=== PATIENT | female | born 1985 | race Caucasian/White ===

== ENCOUNTER 2022-04-21 11:42 | Emergency (ER) | payer OTHER, SELFPAY ==
--- NOTE | 2022-04-21 11:43 | ED.EAR ---
HPI - Ear Problem General Chief complaint: Ear Stated complaint: Right Ear Pain/Dizziness Time Seen by Provider: 04/21/22 11:43 Source: patient Mode of arrival: ambulatory Limitations: no limitations History of Present Illness HPI Narrative: Ms. Meyers is a 36-year-old female patient presenting to the clinic today with complaints of right ear pain and some dizziness since yesterday. She reports she has fullness in her ear. Recently has been to [place] and did very little swimming. Related Data Home Medications Medication Instructions Recorded Confirmed No Home Medications 04/21/22 04/21/22 Allergies Allergy/AdvReac Type Severity Reaction Status Date / Time No Known Allergies Allergy Verified 04/21/22 11:56 Review of Systems Review of Systems: Pertinent positives per HPI. Patient denies any fever, chills, rash, headache, visual changes, cough, runny nose, sore throat, shortness of breath, chest pain, palpitations, nausea, vomiting, diarrhea, constipation, abdominal pain, or any urinary issues. PMFSH Comments At the time of my signature, I reviewed and agree with the nursing past medical, surgical, social, and family history. There is no relevant family history pertinent to the patient complaint. Exam Narrative: General: Well-developed, well nourished, in no apparent distress Head: Normocephalic, atraumatic Eyes: Pupils equally round and reactive to light bilaterally, EOM intact, sclera and conjunctive clear, no discharge, lids normal Ears: Bilateral ear canals with excessive cerumen with impaction to the right ear canal, ear lavage was performed bilaterally and successful, TMs intact and clear, ear canals clear, no drainage, grossly hearing normal. Symptoms improved after ear lavage Nose: Nares patent, no discharge, no inflammation, no sinus tenderness. Mouth: Oropharynx without lesions or masses, good dentition, MMM. Neck: Supple, trachea midline, no enlargement of anterior or posterior cervical nodes, no thyroid masses or goiter palpable. Cardio: Regular rate and rhythm, s1 and s2 normal, no murmur appreciated. Resp: Clear to auscultation bilaterally anteriorly and posteriorly, no rhonchi, rales, wheezing or rubs Course Course Emergency Course: Portions of this record may have been created with voice recognition software. Level of Care: Express Care Visit Vital Signs Vital signs: Vital Signs Temperature 37.2 C 04/21/22 11:50 Pulse Rate 76 07/28/22 11:50 Respiratory Rate 16 04/21/22 11:50 Blood Pressure 109/62 04/21/22 11:50 Pulse Oximetry 100 04/21/22 11:50 Oxygen Delivery Room Air 04/21/22 11:50 Temperature 37.2 C 04/21/22 11:50 Pulse Rate 76 04/21/22 11:50 Respiratory Rate 16 04/21/22 11:50 Blood Pressure 109/62 04/21/22 11:50 Pulse Oximetry 100 04/21/22 11:50 Oxygen Delivery Room Air 04/21/22 11:50 Vital signs reviewed Procedures Ear Wax Removal Both Ears: Ear Wax Removal Date: 04/21/22 Results: Re-examined: cerumen removed completely TM Examination: TM(s) intact, normal appearance Ear Canal Exam: atraumatic Patient Tolerated Procedure: well Complications: no problems Technique: ear canal irrigated Additional Comments: Consent for ear irrigation obtained. Risk and benefits were explained and patient voiced understanding. Ear irrigation successfully and this improved patient's symptoms of right ear fullness and dizziness. Medical Decision Making MDM Narrative Medical decision making narrative: At the time of visit patient is resting comfortably on the exam table. Bilateral ear canals with excessive cerumen with impaction in the right ear. Ear irrigation performed bilaterally and this improved patient's symptoms. Supportive measures were discussed with the patient she voiced understanding of discharge instructions and agrees to treatment plan. Vital Signs Vital Signs: Vital Signs Temp
[2022-04-21 11:50] VITALS: BP 109/62; PULSE 76; RESP 16; TEMP 37.2; O2SAT 100
--- NOTE | 2022-04-21 13:28 | PC.NURSE ---
R ear irrigated by provider
== END 2022-04-21 12:38 | disposition home or self-care (01) ==
PROVIDERS: Emergency Provider Nurse Practitioner Family; PCP Physician Assistant
DX: H61.23 Impacted cerumen, bilateral (principal)
CPT/HCPCS: 69209; 99212; G0463

== ENCOUNTER 2023-04-09 08:50 | Emergency (ER) | payer OTHER, SELFPAY ==
[2023-04-09 09:02] VITALS: BP 106/60; PULSE 66; RESP 20; TEMP 36.4; O2SAT 100
--- NOTE | 2023-04-09 09:15 | ED.EAR ---
HPI - Ear Problem General Chief complaint: Ear Stated complaint: throbbing pain rt ear Time Seen by Provider: 04/09/23 09:02 Source: patient Mode of arrival: ambulatory Limitations: no limitations History of Present Illness HPI Narrative: Tere is a 37-year-old female patient presenting to clinic today with complaints of right-sided ear pain that just began 2 days ago. She reports she has recently been swimming. No fevers or chills. Related Data Allergies Allergy/AdvReac Type Severity Reaction Status Date / Time No Known Allergies Allergy Verified 04/09/23 09:11 Review of Systems Review of Systems: Pertinent positives per HPI. Patient denies any fever, chills, rash, headache, visual changes, dizziness, cough, runny nose, sore throat, shortness of breath, chest pain, palpitations, nausea, vomiting, diarrhea, constipation, abdominal pain, or any urinary issues. PMFSH Comments At the time of my signature, I reviewed and agree with the nursing past medical, surgical, social, and family history. There is no relevant family history pertinent to the patient complaint. Exam Narrative: General: Well-developed, well nourished, in no apparent distress Head: Normocephalic, atraumatic Eyes: Pupils equally round and reactive to light bilaterally, EOM intact, sclera and conjunctive clear, no discharge, lids normal Ears: TMs intact and clear, ear canals clear, no drainage, grossly hearing normal. Nose: Nares patent, no discharge, no inflammation, no sinus tenderness. Mouth: Oropharynx without lesions or masses, good dentition, MMM. Neck: Supple, trachea midline, no enlargement of anterior or posterior cervical nodes, no thyroid masses or goiter palpable. Cardio: Regular rate and rhythm, s1 and s2 normal, no murmur appreciated. Resp: Clear to auscultation bilaterally anteriorly and posteriorly, no rhonchi, rales, wheezing or rubs Course Course Emergency Course: Portions of this record may have been created with voice recognition software. Level of Care: Express Care Visit Vital Signs Vital signs: Vital Signs Temperature 36.4 C 04/09/23 09:02 Pulse Rate 66 04/09/23 09:02 Respiratory Rate 20 04/09/23 09:02 Blood Pressure 106/60 04/09/23 09:02 Pulse Oximetry 100 04/09/23 09:02 Oxygen Delivery Room Air 04/09/23 09:02 Temperature 36.4 C 04/09/23 09:02 Pulse Rate 66 04/09/23 09:02 Respiratory Rate 20 04/09/23 09:02 Blood Pressure 106/60 04/09/23 09:02 Pulse Oximetry 100 04/09/23 09:02 Oxygen Delivery Room Air 04/09/23 09:02 Vital signs reviewed Medical Decision Making MDM Narrative Medical decision making narrative: At the time of visit patient is resting comfortably on exam table. I suspect patient has right otitis externa. Prescription for Cipro Floxin ear drops was sent to the pharmacy. Supportive measures were discussed with the patient she voiced understanding discharge instructions agrees to treatment plan. Differential Diagnosis Differential Diagnosis: Otitis media, otitis media, eustachian tube dysfunction, upper respiratory infection, cerumen impaction. Vital Signs Vital Signs: Vital Signs Temperature 36.4 C 04/09/23 09:02 Pulse Rate 66 04/09/23 09:02 Respiratory Rate 20 04/09/23 09:02 Blood Pressure 106/60 04/09/23 09:02 Pulse Oximetry 100 04/09/23 09:02 Oxygen Delivery Room Air 04/09/23 09:02 Temperature 36.4 C 04/09/23 09:02 Pulse Rate 66 04/09/23 09:02 Respiratory Rate 20 04/09/23 09:02 Blood Pressure 106/60 04/09/23 09:02 Pulse Oximetry 100 04/09/23 09:02 Oxygen Delivery Room Air 04/09/23 09:02 Discharge Plan Discharge Clinical Impression: Otitis externa Qualifiers: Otitis externa type: diffuse Chronicity: acute Laterality: right Qualified Code(s): H60.311 - Diffuse otitis externa, right ear Patient Disposition: Home, Self-Care Condition: Stable Instructions: Antibiotic Form, Swi
== END 2023-04-09 09:22 | disposition home or self-care (01) ==
PROVIDERS: Emergency Provider Nurse Practitioner Family; PCP Physician Assistant
DX: H60.311 Diffuse otitis externa, right ear (principal)
CPT/HCPCS: 99213; G0463

== ENCOUNTER 2024-09-12 11:49 | Emergency (ER) | payer OTHER, SELFPAY ==
[2024-09-12 11:58] VITALS: BP 99/63; PULSE 90; RESP 17; TEMP 37; O2SAT 100
--- NOTE | 2024-09-12 12:10 | ED_ITS ---
HPI - Ear Problem General Chief complaint: Ear Stated complaint: left ear Time Seen by Provider: 09/12/24 12:12 Source: patient Mode of arrival: ambulatory Limitations: no limitations History of Present Illness HPI Narrative: 38-year-old female presented for complaint of left ear fullness over the past few days. She states it feels like it is impacted. reports history of cerumen impactions. Denies tinnitus, dizziness nasal congestion or sick symptoms. 36 weeks gestation MD Complaint: ear pain Related Data Home Medications ?Medication ?Instructions ?Recorded ?Confirmed ?Last Taken ?Type amoxicillin 875 mg tablet mg 09/12/24 Unknown History ferrous sulfate 325 mg (65 mg mg 09/12/24 Unknown History iron) tablet vitamin with calcium tablet 09/12/24 Unknown History no.72-iron 27 mg-folic acid 1 mg tablet (M-Anne Plus) Allergies Allergy/AdvReac Type Severity Reaction Status Date / Time No Known Allergies Allergy Verified 09/12/24 12:02 Review of Systems Review of Systems: CONSTITUTIONAL: Denies malaise, chills, or fever. EYES: Denies visual changes, redness, or discharge. ENT: Denies rhinorrhea, congestion, sinus pain, and sore throat. Reports ear fullness CARDIOVASCULAR: Denies chest pain, palpitations, or edema. RESPIRATORY: Denies cough or dyspnea. GASTROINTESTINAL: Denies abdominal pain, nausea, vomiting, diarrhea SKIN: Denies rash or itching. MUSCULOSKELETAL: Denies myalgia. NEUROLOGIC: Denies headache. All systems reviewed & are unremarkable except as noted in HPI and below [facility] Comments At time of signature, agree with nursing past medical, surgical, social and family history. There is no relevant family history pertinent to the presenting complaint Exam Narrative: GENERAL: Well-appearing EYES: PERRLA, conjunctivae clear ENT: Nares clear. Mucous membranes moist. bilateral TMs unable to visualize due to cerumen impactions, no tragal tenderness. Oropharynx not erythematous without lesions. Tonsils not enlarged and without exudate, no drooling, no hoarseness, no trismus, uvula midline. NECK: Bilateral swelling distal to mandible CHEST: Clear to auscultation, breath sounds equal. No wheezing, rhonchi, rales, or stridor. No respiratory distress, speaks in full sentences. HEART: Regular rate and rhythm. SKIN: Warm, dry, no rash. NEURO: Alert and oriented x3. PSYCH: Normal mood and affect Course Course Emergency Course: Patient is aware of diagnosis, understands and agrees to treatment plan. Anticipatory guidance given. Patient agrees to follow-up as directed and is aware of reasons to seek care at the emergency department. Portions of this record may have been created with voice recognition software Level of Care: Express Care Visit Vital Signs Vital signs: Vital Signs Temperature 98.6 F 09/12/24 11:58 Pulse Rate 90 09/12/24 11:58 Respiratory Rate 17 09/12/24 11:58 Blood Pressure 99/63 L 09/12/24 11:58 Pulse Oximetry 100 09/12/24 11:58 Oxygen Delivery Room Air 09/12/24 11:58 Temperature 98.6 F 09/12/24 11:58 Pulse Rate 90 09/12/24 11:58 Respiratory Rate 17 09/12/24 11:58 Blood Pressure 99/63 L 09/12/24 11:58 Pulse Oximetry 100 09/12/24 11:58 Oxygen Delivery Room Air 09/12/24 11:58 Reviewed Procedures Ear Wax Removal Left Ear: Ear Wax Removal Date: 09/12/24 Cerumenolytic Used: other ( Equal parts warm water and hydrogen peroxide) Results: Re-examined: some cerumen remains TM Examination: other ( unable to fully visualize TM) Ear Canal Exam: atraumatic Complications: vertigo/dizziness ( mild) Technique: ear canal irrigated and ear canal curetted Additional Comments: Pt unable to tolerate curette due to discomfort. Irrigation resulted in mild dizziness.Minimal cerumen was removed, procedure terminated due to dizziness. Cerumen is minimal but near TM. Medical Decision Making MDM Narrative Medical decision making narrative: patient unable to tolerate full cerumen removal due to dizziness. Advised supportive measures and signs/symptoms to go to the ER. Patient is appropriate for outpatient treatment and follow-up. Differential Diagnosis Differential Diagnosis: Coronavirus, strep pharyngitis, allergic rhinitis, upper respiratory tract infection, sinusitis, rhinosinusitis, nasopharyngitis, viral pharyngitis, otitis media, otitis externa, eustachian tube dysfunction, foreign body, cerumen impaction. Vital Signs Vital Signs: Vital Signs Temperature 98.6 F 09/12/24 11:58 Pulse Rate 90 09/12/24 11:58 Respiratory Rate 17 09/12/24 11:58 Blood Pressure 99/63 L 09/12/24 11:58 Pulse Oximetry 100 09/12/24 11:58 Oxygen Delivery Room Air 09/12/24 11:58 Temperature 98.6 F 09/12/24 11:58 Pulse Rate 90 09/12/24 11:58 Respiratory Rate 17 09/12/24 11:58 Blood Pressure 99/63 L 09/12/24 11:58 Pulse Oximetry 100 09/12/24 11:58 Oxygen Delivery Room Air 09/12/24 11:58 Discharge Plan Discharge Clinical Impression: Bilateral impacted cerumen Patient Disposition: Home, Self-Care Condition: Stable Instructions: Antibiotic Form, How to Use Ear Drops (ED) Additional Instructions: Please use a earwax softening agent such as [id number] Debrox or a mixture of 1 part hydrogen peroxide in 1 part warm water several times weekly to keep your earwax soft and prevent further impaction. Please follow-up with your primary care doctor if you develop new symptoms. If you have urgent concerns please go to the ER. Patient Language: Algerian Prescriptions: No Action amoxicillin 875 mg tablet ferrous sulfate 325 mg (65 mg iron) tablet M-Anne Plus 27 mg iron- 1 mg tablet Follow-up/Referrals: Christophe,Bev Adkins [Primary Care Provider] - Time of Disposition: 12:36
== END 2024-09-12 12:40 | disposition home or self-care (01) ==
PROVIDERS: Emergency Provider Nurse Practitioner Family; PCP Nurse Practitioner
DX: H61.23 Impacted cerumen, bilateral (principal)
CPT/HCPCS: 69210; 99212; G0463

== ENCOUNTER 2024-11-11 14:24 | Emergency (ER) | payer OTHER, SELFPAY ==
[2024-11-11 14:32] VITALS: BP 118/73; PULSE 116; RESP 14; TEMP 37.1; O2SAT 100
--- NOTE | 2024-11-11 15:06 | ED.EYEPROB ---
HPI - Eye Problem General Chief complaint: Eye Problems Stated complaint: Left Eye Swelling Time Seen by Provider: 11/11/24 15:00 Source: patient, RN notes reviewed and old records reviewed Mode of arrival: ambulatory Limitations: no limitations History of Present Illness HPI Narrative: 39 year old female who presents to [facility] care with complaint of left lower eyelid swelling and redness with raised whitish yellow lesion noted on lower external eyelid for the past 4 days. Patient has been applying warm compresses to her left lower eyelid without improvement in her symptoms. Patient reports no visual changes or sharp pain to her left eye.Conjunctiva of left eye is reddened with sclera clear. MD chief complaint: eye redness and other (swelling left lower eyelid, stye) Onset (ago): day(s) (4) Location: left eye Severity scale (1-10): 3 Treatments Prior to Arrival: other (warm compresses to left eye) Related Data Home Medications ?Medication ?Instructions ?Recorded ?Confirmed ?Last Taken ?Type ferrous sulfate 325 mg (65 mg mg 09/12/24 Unknown History iron) tablet vitamin with calcium tablet 09/12/24 Unknown History no.72-iron 27 mg-folic acid 1 mg tablet (M-Anne Plus) Allergies Allergy/AdvReac Type Severity Reaction Status Date / Time No Known Allergies Allergy Verified 11/11/24 14:36 Review of Systems Review of Systems: CONSTITUTIONAL: Denies fever, chills, or sweats. EYES: Denies visual changes. Reports redness, irritation, of left lower eyelid with swelling and yellowish white lesion noted on left lower eyelid, no sharp pain to left eye ENT: Denies rhinorrhea, congestion, sore throat, or otalgia. CARDIOVASCULAR: Denies chest pain, palpitations, or edema. RESPIRATORY: Denies cough or dyspnea. SKIN: Denies rash or itching. NEUROLOGIC: Denies headache All systems reviewed & are unremarkable except as noted in HPI and below PMFSH Past Medical History Medical History (Updated 11/12/24 @ 08:12 by Ledy Ortega NP) Anemia Surgical History Surgical History Previous section Social History Social History (Updated 11/12/24 @ 08:09 by Ledy Ortega NP) Smoking status: Never smoker Alcohol intake: current Alcohol use details: social Substance use type: does not use Living arrangements: with family Gender identity (if verbalized by the patient): Female Comments At time of signature, agree with nursing past medical, surgical, social and family history. There is no relevant family history pertinent to the presenting complaint Exam Narrative: GENERAL: Well-appearing, well-nourished, and in no acute distress. HEAD: Normocephalic, atraumatic. EYES: PERRLA and EOMI. Upper and lower eyelids unremarkable right eye, Left eye upper eyelid unremarkable left lower eyelid red and swollen with raised whitish yellow lesion. No periorbital cellulitis noted. Sclera clear and conjunctivae injected of left eye, patient reports no change in vision or any drainage from left eye denies any sharp pain to left eye. ENT: Nares clear, no rhinorrhea or epistaxis. Mucous membranes moist.TM's normal bilaterally, throat pink with no swelling or redness NECK: Supple.no lymphadenopathy CHEST: Clear to auscultation. No respiratory distress. no cough noted SAO2 100% on room air HEART: Regular rate and rhythm. No murmur heard. Normal peripheral pulses. SKIN: Warm, dry, no rash. NEURO: No focal deficits. Alert and oriented x3. Course Course Emergency Course: Patient is aware of diagnosis, understands and agrees to treatment plan. Anticipatory guidance given. Patient agrees to follow-up as directed and is aware of reasons to seek care at the emergency department. Portions of this record may have been created with voice recognition software Level of Care: Express Care Visit Vital Signs Vital signs: Vital Signs Temperature 37.1 C 11/11/24 14:32 Pulse Rate 116 H 11/11/24 14:32 Respiratory Rate 14 11/11/24 14:32 Blood Pressure 118/73 11/11/24 14:32 Pulse Oximetry 100 11/11/24 14:32 Oxygen Delivery Room Air 11/11/24 14:32 Temperature 37.1 C 11/11/24 14:32 Pulse Rate 116 H 11/11/24 14:32 Respiratory Rate 14 11/11/24 14:32 Blood Pressure 118/73 11/11/24 14:32 Pulse Oximetry 100 11/11/24 14:32 Oxygen Delivery Room Air 11/11/24 14:32 Reviewed MDM - Eye Problem MDM Narrative Medical decision making narrative: Consideration of the following conditions may be warranted for the presenting problem, they are not final diagnoses: Bacterial conjunctivitis, allergic conjunctivitis, viral conjunctivitis, foreign body, blepharitis, chalazion, hordeolum, corneal abrasion.? Exam findings show no acute concerns or changes; patient is non-toxic appearing and is in no distress.? Patient is appropriate for outpatient treatment and follow-up. Differential Diagnosis Differential diagnosis: Likely conjunctivitis and other (external left hordeolum lower eylid, discomfort to left lower eyelid) Medical Records Attestation: I reviewed the patient's medical records. Critical Care Time Critical Care Time Critical Care Time: No Discharge Plan Discharge Clinical Impression: Conjunctivitis of left eye Qualifiers: Conjunctivitis type: acute Acute conjunctivitis type: unspecified Qualified Code(s): H10.32 - Unspecified acute conjunctivitis, left eye Hordeolum, external Qualifiers: Laterality: left Eyelid: lower Qualified Code(s): H00.015 - Hordeolum externum left lower eyelid Patient Disposition: Home, Self-Care Condition: Stable Instructions: Antibiotic Form, Stye (ED), Conjunctivitis (ED) Additional Instructions: Cold compresses to the eyes for comfort May need warm compresses to remove debris in the morning When cleaning the eyes used a washcloth in one direction then change washcloths or use a cotton ball in one direction and then his cotton balls Eyedrops as directed--may be more soothing if left in the refrigerator Do not share medicine--do not touch the eye with the medicine Tylenol or ibuprofen for pain Avoid screen time--television, computer, tablet or phone. Also no reading or driving Follow-up with PCP or business systems architect as directed improvement in 48 hours If your symptoms persist, change or worsen significantly before you can contact your personal physician then please, without delay, go to the emergency department for further evaluation. Follow-up with PCP in 7-10 days or sooner if needed Patient Language: Nepali Prescriptions: New ofloxacin 0.3 % drops See Rx Instructions .ROUTE .COMPLEX Qty: 10 0RF Rx Instructions: put 1-2 drps into affected eye(s) every 2-4 h x 2 days, then 1-2 drps 4 times/day days 3-7 No Action ferrous sulfate 325 mg (65 mg iron) tablet M- Plus 27 mg iron- 1 mg tablet Follow-up/Referrals: Christophe,Bev Adkins [Primary Care Provider] - Time of Disposition: 15:10 Quality [place] Coma Scale Eyes: Open Verbal: Oriented and Alert Motor: Follows Commands Ramin Coma Total Score: 15
--- OUTSIDE RECORDS SUMMARY | 2024-11-11 17:10 | XMS_ITS | Data Portability ---
Author Organization [facility] Address [address] [place] [address] Care Team Providers Care Assistant Professor Surgical Technology Name Role Phone HERMELINDO ALAMO Primary Care Provider Assessment No assessment recorded. Plan of Treatment Reminders Order Date Submit Date Provider Last Modified By Organization Details Last Modified Time Details Appointments OB 15 2024 01:15P M Shahzad Lane MD Not available Not available Not available Lab urinal ysis, dipsti ck 2024 025 [email or web address] In-Office Order, Internal Use Only DO Not Attach Compendium DO Not Attach Compendium, Do Not Delete/merge, [id number] 10/01/2024 15:31:42 urinal ysis, dipsti ck 2023 024 [email or web address] In-Office Order, Internal Use Only DO Not Attach Compendium DO Not Attach Compendium, Do Not Delete/merge, [id number] 09/23/2024 15:50:41 urinal ysis, dipsti ck 2023 024 [email or web address] In-Office Order, Internal Use Only DO Not Attach Compendium DO Not Attach Compendium, Do Not Delete/merge, [id number] 09/16/2024 14:42:11 Referral None record ed. Procedures None record ed. Surgeries None record ed. Imaging None record ed. Medication Orders None record ed. Patient TargetsNo targets recorded. Patient Instructions Encounter Date Encounter Id Patient Instructions Last Modified By Organization Details Last Modified Time 09/16/2024 [id number] After Age 35: Care Instructions Not available 09/16/2024 14:42:11 09/23/2024 [id number] After Age 35: Care Instructions Not available 09/23/2024 15:50:41 10/10/2024 [id number] A healthy lifestyle: care instructions Not available 11/04/2024 19:00:12 10/17/2024 [id number] edinburgh depression scale* david Not available 11/04/2024 20:37:43 Reason for Referral None Reported. Results Created Date Observation Date Name Description Value Unit Range Abnormal Flag Note LastModifiedBy Organization Detail LastModifiedTime 08/28/20 24 08/28/2024 urina lysis , dipst ick Leukocytes Negati ve Not Available In-Office Order Internal Use Only DO Not Attach Compendium DO Not Attach Compendium, Do Not Delete/merge, [id number] 08/28/2024 15:01:54 08/28/20 24 08/28/2024 urina lysis , dipst ick Nitrite negati ve Not Available In-Office Order Internal Use Only DO Not Attach Compendium DO Not Attach Compendium, Do Not Delete/merge, [id number] 08/28/2024 15:01:54 08/28/20 24 08/28/2024 urina lysis , dipst ick Urobilinogen .2 Not Available In-Of fice Order Internal Use Only DO Not Attach Compendium DO Not Attach Compendium, Do Not Delete/merge, [id number] 08/28/2024 15:01:54 08/28/20 24 08/28/2024 urina lysis , dipst ick Protein Negati ve Not Available In-Office Order Internal Use Only DO Not Attach Compendium DO Not Attach Compendium, Do Not Delete/merge, [id number] 08/28/2024 15:01:54 08/28/20 24 08/28/2024 urina lysis , dipst ick pH 7.0 Not Available In-Office Order Internal Use Only DO Not Attach Compendium DO Not Attach Compendium, Do Not Delete/merge, [id number] 08/28/2024 15:01:54 08/28/20 24 08/28/2024 urina lysis , dipst ick Blood Negati ve Not Available In-Office Order Internal Use Only DO Not Attach Compendium DO Not Attach Compendium, Do Not Delete/merge, [id number] 08/28/2024 15:01:54 08/28/20 24 08/28/2024 urina lysis , dipst ick Specific Olla 1.020 Not Available In-Off ice Order Internal Use Only DO Not Attach Compendium DO Not Attach Compendium, Do Not Delete/merge, [id number] 08/28/2024 15:01:54 08/28/20 24 08/28/2024 urina lysis , dipst ick Ketone Modera te Not Available In-Office Order Internal Use Only DO Not Attach Compendium DO Not Attach Compendium, Do Not Delete/merge, [id number] 08/28/2024 15:01:54 08/28/20 24 08/28/2024 urina lysis , dipst ick Bilirubin Negati ve Not Available In-Office Order Internal Use Only DO Not Attach Compendium DO Not Attach Compendium, Do Not Delete/merge, [id number] 08/28/2024 15:01:54 08/28/20 24 08/28/2024 urina lysis , dipst ick Glucose Negati ve Not Available In-Office Order Internal Use Only DO Not Attach Compendium DO Not Attach Compendium, Do Not Delete/merge, [id number] 08/28/2024 15:01:54 08/28/20 24 08/28/2024 urina lysis , dipst ick Appearance Slight ly Cloudy Not Available In-Office Order Internal Use Only DO Not Attach Compendium DO Not Attach Compendium, Do Not Delete/merge, [id number] 08/28/2024 15:01:54 08/28/20 24 08/28/2024 urina lysis , dipst ick Color Yellow Not Available In-Office Order Internal Use Only DO Not Attach Compendium DO Not Attach Compendium, Do Not Delete/merge, [id number] 08/28/2024 15:01:54 09/04/20 24 09/05/2024 CT, NG, TRICH VAG BY VIRAJ chlamydia by VIRAJ NEGATI VE negati ve Not Available [facility] ([facility]) [address] [facility], [place], [address], 09/06/2024 16:13:07 09/04/20 24 09/05/2024 CT, NG, TRICH VAG BY VIRAJ gonococcus by VIRAJ NEGATI VE negati ve Not Available [facility] ([facility]) [address] [facility], [place], [address], 09/06/2024 16:13:07 09/04/20 24 09/05/2024 CT, NG, TRICH VAG BY VIRAJ trich vag by VIRAJ NEGATI VE negati ve Not Available [facility] ([facility]) [address] [facility], [place], [address], 09/06/2024 16:13:07 09/04/20 24 09/06/2024 STREP GP B VIRAJ strep gp B VIRAJ NEGATI VE negati ve Cente rs for Disea se Contr ol and Preve ntion (CDC) and Ameri can Congr ess of Obste trici ans and Gynec ologi sts (ACOG ) guide lines for preve ntion of perin atal group B strep tococ leticia (GBS) disea se speci fy co-co llect ion of a vagin al and recta l swab speci men to maxim ize sensi tivit y of GBS detec tion. Per the CDC and ACOG, swabb ing both the lower vagin a and rectu m subst antia lly incre ases the yield of detec tion rosalind red with sampl ing the vagin a alone . Penic illin G, ampic illin , or cefaz arthur are indic ated for intra partu m proph ylaxi s of perin atal GBS colon izati on. Refle x susce ptibi lity testi ng shoul d be perfo rmed prior to use of clind amyci n only on GBS isola latonya from penic illin -win rgic women who are consi dered a high risk for anaph ylaxi s. Treat ment with vanco mycin witho ut addit ional testi ng is warra nted if resis tance to clind amyci n is noted . Not Available [facility] ([facility]) [address] [facility], [place], [address], 09/06/2024 16:13:09 09/04/20 24 09/05/2024 RPR, RFX QN RPR/C ONFIR M TP RPR NON REACTI VE nonrea ctive Not Available [facility] ([facility]) [address] [facility], [place], [address], 09/06/2024 16:13:10 09/04/20 24 09/05/2024 HIV AB/P2 4 AG WITH REFLE X HIV Ab/P24 Ag screen NON REACTI VE nonrea ctive HIV-1 /HIV- 2 antib odies and HIV-1 p24 antig en were NOT detec sharmila. There is no labor atory evide nce of HIV infec tion. HIV Negat stefanie Not Available [facility] ([facility]) [address] [facility], [place], [address], 09/06/2024 16:13:11 09/04/20 24 09/04/2024 urina lysis , dipst ick Leukocytes Negati ve Not Available In-Office Order Internal Use Only DO Not Attach Compendium DO Not Attach Compendium, Do Not Delete/merge, [id number] 09/04/2024 17:00:10 09/04/20 24 09/04/2024 urina lysis , dipst ick Nitrite negati ve Not Available In-Office Order Internal Use Only DO Not Attach Compendium DO Not Attach Compendium, Do Not Delete/merge, [id number] 09/04/2024 17:00:10 09/04/20 24 09/04/2024 urina lysis , dipst ick Urobilinogen .2 Not Available In-Of fice Order Internal Use Only DO Not Attach Compendium DO Not Attach Compendium, Do Not Delete/merge, [id number] 09/04/2024 17:00:10 09/04/20 24 09/04/2024 urina lysis , dipst ick Protein Negati ve Not Available In-Office Order Internal Use Only DO Not Attach Compendium DO Not Attach Compendium, Do Not Delete/merge, [id number] 09/04/2024 17:00:10 09/04/20 24 09/04/2024 urina lysis , dipst ick pH 7.0 Not Available In-Office Order Internal Use Only DO Not Attach Compendium DO Not Attach Compendium, Do Not Delete/merge, [id number] 09/04/2024 17:00:10 09/04/20 24 09/04/2024 urina lysis , dipst ick Blood Negati ve Not Available In-Office Order Internal Use Only DO Not Attach Compendium DO Not Attach Compendium, Do Not Delete/merge, [id number] 09/04/2024 17:00:10 09/04/20 24 09/04/2024 urina lysis , dipst ick Specific Olla 1.015 Not Available In-Off ice Order Internal Use Only DO Not Attach Compendium DO Not Attach Compendium, Do Not Delete/merge, [id number] 09/04/2024 17:00:10 09/04/20 24 09/04/2024 urina lysis , dipst ick Ketone Negati ve Not Available In-Office Order Internal Use Only DO Not Attach Compendium DO Not Attach Compendium, Do Not Delete/merge, [id number] 09/04/2024 17:00:10 09/04/20 24 09/04/2024 urina lysis , dipst ick Bilirubin Negati ve Not Available In-Office Order Internal Use Only DO Not Attach Compendium DO Not Attach Compendium, Do Not Delete/merge, [id number] 09/04/2024 17:00:10 09/04/20 24 09/04/2024 urina lysis , dipst ick Glucose Negati ve Not Available In-Office Order Internal Use Only DO Not Attach Compendium DO Not Attach Compendium, Do Not Delete/merge, [id number] 09/04/2024 17:00:10 09/04/20 24 09/04/2024 urina lysis , dipst ick Appearance Clear Not Available In-Offi ce Order Internal Use Only DO Not Attach Compendium DO Not Attach Compendium, Do Not Delete/merge, [id number] 09/04/2024 17:00:10 09/04/20 24 09/04/2024 urina lysis , dipst ick Color Pale Yellow Not Available In-Office Order Internal Use Only DO Not Attach Compendium DO Not Attach Compendium, Do Not Delete/merge, [id number] 09/04/2024 17:00:10 09/10/20 24 09/10/2024 urina lysis , dipst ick Leukocytes Small Not Available In-Offi ce Order Internal Use Only DO Not Attach Compendium DO Not Attach Compendium, Do Not Delete/merge, [id number] 09/10/2024 15:09:03 09/10/20 24 09/10/2024 urina lysis , dipst ick Nitrite negati ve Not Available In-Office Order Internal Use Only DO Not Attach Compendium DO Not Attach Compendium, Do Not Delete/merge, [id number] 09/10/2024 15:09:03 09/10/20 24 09/10/2024 urina lysis , dipst ick Urobilinogen .2 Not Available In-Of fice Order Internal Use Only DO Not Attach Compendium DO Not Attach Compendium, Do Not Delete/merge, [id number] 09/10/2024 15:09:03 09/10/20 24 09/10/2024 urina lysis , dipst ick Protein 30 Not Available In-Office Order Internal Use Only DO Not Attach Compendium DO Not Attach Compendium, Do Not Delete/merge, [id number] 09/10/2024 15:09:03 09/10/20 24 09/10/2024 urina lysis , dipst ick pH 8.5 Not Available In-Office Order Internal Use Only DO Not Attach Compendium DO Not Attach Compendium, Do Not Delete/merge, [id number] 09/10/2024 15:09:03 09/10/20 24 09/10/2024 urina lysis , dipst ick Blood Negati ve Not Available In-Office Order Internal Use Only DO Not Attach Compendium DO Not Attach Compendium, Do Not Delete/merge, [id number] 09/10/2024 15:09:03 09/10/20 24 09/10/2024 urina lysis , dipst ick Specific Olla 1.025 Not Available In-Off ice Order Internal Use Only DO Not Attach Compendium DO Not Attach Compendium, Do Not Delete/merge, [id number] 09/10/2024 15:09:03 09/10/20 24 09/10/2024 urina lysis , dipst ick Ketone Negati ve Not Available In-Office Order Internal Use Only DO Not Attach Compendium DO Not Attach Compendium, Do Not Delete/merge, [id number] 09/10/2024 15:09:03 09/10/20 24 09/10/2024 urina lysis , dipst ick Bilirubin Negati ve Not Available In-Office Order Internal Use Only DO Not Attach Compendium DO Not Attach Compendium, Do Not Delete/merge, [id number] 09/10/2024 15:09:03 09/10/20 24 09/10/2024 urina lysis , dipst ick Glucose Negati ve Not Available In-Office Order Internal Use Only DO Not Attach Compendium DO Not Attach Compendium, Do Not Delete/merge, [id number] 09/10/2024 15:09:03 09/10/20 24 09/10/2024 urina lysis , dipst ick Appearance Slight ly Cloudy Not Available In-Office Order Internal Use Only DO Not Attach Compendium DO Not Attach Compendium, Do Not Delete/merge, [id number] 09/10/2024 15:09:03 09/10/20 24 09/10/2024 urina lysis , dipst ick Color Yellow Not Available In-Office Order Internal Use Only DO Not Attach Compendium DO Not Attach Compendium, Do Not Delete/merge, [id number] 09/10/2024 15:09:03 09/16/20 24 09/16/2024 urina lysis , dipst ick Leukocytes Small Not Available In-Offi ce Order Internal Use Only DO Not Attach Compendium DO Not Attach Compendium, Do Not Delete/merge, [id number] 09/16/2024 14:11:30 09/16/20 24 09/16/2024 urina lysis , dipst ick Nitrite negati ve Not Available In-Office Order Internal Use Only DO Not Attach Compendium DO Not Attach Compendium, Do Not Delete/merge, [id number] 09/16/2024 14:11:30 09/16/20 24 09/16/2024 urina lysis , dipst ick Urobilinogen .2 Not Available In-Of fice Order Internal Use Only DO Not Attach Compendium DO Not Attach Compendium, Do Not Delete/merge, [id number] 09/16/2024 14:11:30 09/16/20 24 09/16/2024 urina lysis , dipst ick Protein Trace Not Available In-Office Order Internal Use Only DO Not Attach Compendium DO Not Attach Compendium, Do Not Delete/merge, [id number] 09/16/2024 14:11:30 09/16/20 24 09/16/2024 urina lysis , dipst ick pH 6.0 Not Available In-Office Order Internal Use Only DO Not Attach Compendium DO Not Attach Compendium, Do Not Delete/merge, [id number] 09/16/2024 14:11:30 09/16/20 24 09/16/2024 urina lysis , dipst ick Blood Negati ve Not Available In-Office Order Internal Use Only DO Not Attach Compendium DO Not Attach Compendium, Do Not Delete/merge, [id number] 09/16/2024 14:11:30 09/16/20 24 09/16/2024 urina lysis , dipst ick Specific Olla 1.020 Not Available In-Off ice Order Internal Use Only DO Not Attach Compendium DO Not Attach Compendium, Do Not Delete/merge, [id number] 09/16/2024 14:11:30 09/16/20 24 09/16/2024 urina lysis , dipst ick Ketone Negati ve Not Available In-Office Order Internal Use Only DO Not Attach Compendium DO Not Attach Compendium, Do Not Delete/merge, [id number] 09/16/2024 14:11:30 09/16/20 24 09/16/2024 urina lysis , dipst ick Bilirubin Negati ve Not Available In-Office Order Internal Use Only DO Not Attach Compendium DO Not Attach Compendium, Do Not Delete/merge, [id number] 09/16/2024 14:11:30 09/16/20 24 09/16/2024 urina lysis , dipst ick Glucose Negati ve Not Available In-Office Order Internal Use Only DO Not Attach Compendium DO Not Attach Compendium, Do Not Delete/merge, [id number] 09/16/2024 14:11:30 09/16/20 24 09/16/2024 urina lysis , dipst ick Appearance Clear Not Available In-Offi ce Order Internal Use Only DO Not Attach Compendium DO Not Attach Compendium, Do Not Delete/merge, [id number] 09/16/2024 14:11:30 09/16/20 24 09/16/2024 urina lysis , dipst ick Color Yellow Not Available In-Office Order Internal Use Only DO Not Attach Compendium DO Not Attach Compendium, Do Not Delete/merge, [id number] 09/16/2024 14:11:30 09/23/20 24 09/23/2024 urina lysis , dipst ick Leukocytes Trace Not Available In-Offi ce Order Internal Use Only DO Not Attach Compendium DO Not Attach Compendium, Do Not Delete/merge, 09/23/2024 14:01:39 09/23/20 24 09/23/2024 urina lysis , dipst ick Nitrite negati ve Not Available In-Office Order Internal Use Only DO Not Attach Compendium DO Not Attach Compendium, Do Not Delete/merge, 09/23/2024 14:01:39 09/23/20 24 09/23/2024 urina lysis , dipst ick Urobilinogen .2 Not Available In-Of fice Order Internal Use Only DO Not Attach Compendium DO Not Attach Compendium, Do Not Delete/merge, 09/23/2024 14:01:39 09/23/20 24 09/23/2024 urina lysis , dipst ick Protein Negati ve Not Available In-Office Order Internal Use Only DO Not Attach Compendium DO Not Attach Compendium, Do Not Delete/merge, 09/23/2024 14:01:39 09/23/20 24 09/23/2024 urina lysis , dipst ick pH 6.0 Not Available In-Office Order Internal Use Only DO Not Attach Compendium DO Not Attach Compendium, Do Not Delete/merge, [id number] 09/23/2024 14:01:39 09/23/20 24 09/23/2024 urina lysis , dipst ick Blood Negati ve Not Available In-Office Order Internal Use Only DO Not Attach Compendium DO Not Attach Compendium, Do Not Delete/merge, [id number] 09/23/2024 14:01:39 09/23/20 24 09/23/2024 urina lysis , dipst ick Specific Olla 1.020 Not Available In-Off ice Order Internal Use Only DO Not Attach Compendium DO Not Attach Compendium, Do Not Delete/merge, [id number] 09/23/2024 14:01:39 09/23/20 24 09/23/2024 urina lysis , dipst ick Ketone Small Not Available In-Office Order Internal Use Only DO Not Attach Compendium DO Not Attach Compendium, Do Not Delete/merge, [id number] 09/23/2024 14:01:39 09/23/20 24 09/23/2024 urina lysis , dipst ick Bilirubin Negati ve Not Available In-Office Order Internal Use Only DO Not Attach Compendium DO Not Attach Compendium, Do Not Delete/merge, [id number] 09/23/2024 14:01:39 09/23/20 24 09/23/2024 urina lysis , dipst ick Glucose Negati ve Not Available In-Office Order Internal Use Only DO Not Attach Compendium DO Not Attach Compendium, Do Not Delete/merge, [id number] 09/23/2024 14:01:39 09/23/20 24 09/23/2024 urina lysis , dipst ick Appearance Cloudy Not Available In-Offi ce Order Internal Use Only DO Not Attach Compendium DO Not Attach Compendium, Do Not Delete/merge, [id number] 09/23/2024 14:01:39 09/23/20 24 09/23/2024 urina lysis , dipst ick Color Yellow Not Available In-Office Order Internal Use Only DO Not Attach Compendium DO Not Attach Compendium, Do Not Delete/merge, [id number] 09/23/2024 14:01:39 10/01/19 25 10/01/2024 urina lysis , dipst ick Leukocytes Negati ve Not Available In-Office Order Internal Use Only DO Not Attach Compendium DO Not Attach Compendium, Do Not Delete/merge, [id number] 10/01/2024 15:24:56 10/01/19 25 10/01/2024 urina lysis , dipst ick Nitrite negati ve Not Available In-Office Order Internal Use Only DO Not Attach Compendium DO Not Attach Compendium, Do Not Delete/merge, 10/01/2024 15:24:56 10/01/1910/01/2024 urina lysis , dipst ick Urobilinogen 1 Not Available In-Of fice Order Internal Use Only DO Not Attach Compendium DO Not Attach Compendium, Do Not Delete/merge, 10/01/2024 15:24:56 10/01/19 25 10/01/2024 urina lysis , dipst ick Protein 100 Not Available In-Office Order Internal Use Only DO Not Attach Compendium DO Not Attach Compendium, Do Not Delete/merge, 10/01/2024 15:24:56 10/01/19 25 10/01/2024 urina lysis , dipst ick pH 6.0 Not Available In-Office Order Internal Use Only DO Not Attach Compendium DO Not Attach Compendium, Do Not Delete/merge, 10/01/2024 15:24:56 10/01/1910/01/2024 urina lysis , dipst ick Blood Non-He molyze d: Trace Not Available In-Office Order Internal Use Only DO Not Attach Compendium DO Not Attach Compendium, Do Not Delete/merge, 10/01/2024 15:24:56 10/01/19 25 10/01/2024 urina lysis , dipst ick Specific Olla 1.020 Not Available In-Off ice Order Internal Use Only DO Not Attach Compendium DO Not Attach Compendium, Do Not Delete/merge, 10/01/2024 15:24:56 10/01/19 25 10/01/2024 urina lysis , dipst ick Ketone Small Not Available In-Office Order Internal Use Only DO Not Attach Compendium DO Not Attach Compendium, Do Not Delete/merge, 10/01/2024 15:24:56 10/01/19 25 10/01/2024 urina lysis , dipst ick Bilirubin Small Not Available In-Offic e Order Internal Use Only DO Not Attach Compendium DO Not Attach Compendium, Do Not Delete/merge, 10/01/2024 15:24:56 10/01/1910/01/2024 urina lysis , dipst ick Glucose Negati ve Not Available In-Office Order Internal Use Only DO Not Attach Compendium DO Not Attach Compendium, Do Not Delete/merge, [id number] 10/01/2024 15:24:56 10/01/1910/01/2024 urina lysis , dipst ick Appearance Slight ly Cloudy Not Available In-Office Order Internal Use Only DO Not Attach Compendium DO Not Attach Compendium, Do Not Delete/merge, 10/01/2024 15:24:56 10/01/19 25 10/01/2024 urina lysis , dipst ick Color Dark Yellow Not Available In-Office Order Internal Use Only DO Not Attach Compendium DO Not Attach Compendium, Do Not Delete/merge, 10/01/2024 15:24:56 11/04/1911/04/2024 edinb urgh postn atal depre ssion scale * Score 0 Not Available In-Office Order Internal Use Only DO Not Attach Compendium DO Not Attach Compendium, Do Not Delete/merge, 11/04/2024 20:37:18 Result Notes None recorded. Problems Name Problem SNOMED Code Status Onset Date Resolution Date Notes Provider Name and Address Organization Details Recorded Time Pregnanc y 05801266 Completed 202310/10/2024 Mansi Muhammad MA null, [place] - [facility] 5 12:27:29 Lymphade nopathy 41178890 Completed co-manag ement with [facility]. pt notified to continue stay up to take on dental care and notify them of pregnanc y Becky Rodriguez RN null, [place] - [facility] 4 10:15:10 Advanced maternal age [id number] Completed co-manag ment with [facility] Becky Rodriguez RN [place], [place] [facility] 4 10:15:10 Thyroid nodule 898620012 Completed co-manag ement Becky Rodriguez RN null, [place] - [facility] 4 10:15:10 Vaccine declined by parent [id number] Completed 2023 declined TDAP Latasha jain MA null, [place] - [facility] 4 14:23:00 Vaccine declined by parent [id number] Active 2023 declined TDAP Latasha Florentino cristobalCHAGO null, [facility] 4 14:23:00 Rubella non-immu ne 999788140 Completed Shahzad Lane MD Attn: Farrukh g,[address] [facility], [place], [address], [facility] 4 14:27:11 Problem Notes None recorded. Procedures Surgical History Date Name Laterality Status Provider Name and Address Organization Details Recorded Time 4 Control Implant Removal completed LUCILA Segovia Attn: Accounting,[address] [facility], [place], [address], [facility] 10/25/2023 10:15:34 4 Date of Last Pap Smear completed LOC Sims [facility] 03/20/2024 17:14:06 1 IUD Replacement completed LUCILA Segovia Attn: Accounting,[address] [facility], [place], [address], [facility] 01/27/2021 14:25:56 6 IUD Replacement completed Mackenzie Crane [facility] 02/01/2016 15:44:56 Imaging Results None recorded. Procedure Notes None recorded. Medical Equipment None Reported. Allergies No known drug allergies Medications Name Sig Start Date Stop Date Status Note LastModified by Organization Details LastModified Time amoxicillin 500 mg capsule TAKE 1 CAPSULE BY MOUTH TWICE A DAY UNTIL ALL ARE TAKEN 03/21 completed Not Available Not Available Not Available Mirena 21 mcg/24 hr (up to 8 years) 52 mg intrauterin e device Take 1 device by intrauter ine route. 03/20 completed Not Available Not Available Not Available buspirone 5 mg tablet TAKE 1 TABLET BY MOUTH THREE TIMES A DAY 03/21 completed Not Available Not Available Not Available clindamycin HCl 300 mg capsule TAKE 1 CAPSULE BY MOUTH FOUR TIMES A DAY 03/21 completed Not Available Not Available Not Available ibuprofen 800 mg tablet TAKE 1 TABLET BY MOUTH EVERY 6 HOURS NEEDED FOR PAIN 03/21 completed Not Available Not Available Not Available hydrocodone 5 mg-acetamin ophen 325 mg tablet TAKE 1 TABLET BY MOUTH EVERY 4 HOURS NEEDED FOR PAIN 10/17 completed Not Available Not Available Not Available tramadol 50 mg tablet TAKE 1 TABLET BY MOUTH EVERY 6 HOURS NEEDED FOR PAIN 03/21 completed Not Available Not Available Not Available amoxicillin 875 mg tablet Take 1 tablet every 12 hours by oral route. 10/10 completed Not Available Not Available Not Available ciprofloxac in 0.3 % eye drops INSTILL 5 DROPS IN THE RIGHT EAR TWICE DAILY FOR 7 DAYS 10/25 completed Not Available Not Available Not Available cephalexin 500 mg capsule TAKE 1 CAPSULE BY MOUTH 3 TIMES A DAY FOR 10 DAYS. 08/03 completed Not Available Not Available Not Available ferrous sulfate 325 mg (65 mg iron) tablet TAKE 1 TABLET BY MOUTH EVERY DAY active Not Available Not Available No t Available docusate sodium 100 mg capsule TAKE 1 CAPSULE BY MOUTH TWICE A DAY NEEDED FOR CONSTIPAT ION active Not Available Not Available No t Available Cheratussin AC 10 mg-100 mg/5 mL oral liquid active Not Available Not Available Not Available ibuprofen 600 mg tablet TAKE 1 TABLET BY MOUTH EVERY 6 HOURS active Not Available Not Available No t Available fluticasone propionate 50 mcg/actuati on nasal spray,suspe nsion ADMINISTE R 1 SPRAY INTO EACH NOSTRIL DAILY 08/08 completed Not Available Not Available Not Available amoxicillin 875 mg-potassiu m clavulanate 125 mg tablet TAKE 1 TABLET BY MOUTH TWICE A DAY 03/21 completed Not Available Not Available Not Available Vitamin 27 mg iron-0.8 mg tablet TAKE 1 TABLET BY MOUTH EVERY DAY active Not Available Not Available No t Available escitalopra m 10 mg tablet TAKE 1 TABLET BY MOUTH EVERY DAY 03/21 completed Not Available Not Available Not Available chlorhexidi ne gluconate 0.12 % mouthwash APPLY 10 ML TO THE MOUTH OR THROAT 4 (FOUR) TIMES A DAY 01/06 completed Not Available Not Available Not Available M- Plus 27 mg iron-1 mg tablet TAKE 1 TABLET BY MOUTH EVERY DAY active Not Available Not Available No t Available Vitals Date Recorded Body height Body mass index (BMI) Body weight Systolic blood pressure Diastolic blood pressure Provider Name and Address Organization Details Last Updated DateTime 09/16/2024 162.56 cm 27.8 kg/m2 69555.4 g 111 mm[Hg] 75 mm[Hg] Mansi Muhammad MA [facility] 4 14:19:50 Date Recorded Body height Body mass index (BMI) Body weight Systolic blood pressure Diastolic blood pressure Provider Name and Address Organization Details Last Updated DateTime 09/23/2024 162.56 cm 28 kg/m2 06599.09 g 103 mm[Hg] 73 mm[Hg] Rosy Julia [facility] 4 14:01:32 Date Recorded Body height Body mass index (BMI) Body weight Systolic blood pressure Diastolic blood pressure Provider Name and Address Organization Details Last Updated DateTime 10/01/2024 162.56 cm 28.2 kg/m2 56400.15 g 110 mm[Hg] 77 mm[Hg] Mansi Muhammad MA [facility] 5 15:23:57 Date Recorded Body height Body mass index (BMI) Body weight Systolic blood pressure Diastolic blood pressure Provider Name and Address Organization Details Last Updated DateTime 10/10/2024 162.56 cm 27.3 kg/m2 37174.19 g 133 mm[Hg] 80 mm[Hg] Mansi Muhammad MA [facility] 5 11:53:02 Date Recorded Body height Body mass index (BMI) Body weight Systolic blood pressure Diastolic blood pressure Provider Name and Address Organization Details Last Updated DateTime 10/17/2024 162.56 cm 24.5 kg/m2 49647.71 g 129 mm[Hg] 91 mm[Hg] Mansi Muhammad MA [facility] 5 12:01:34 Social History Question Answer Notes LastModified by Organizat ion Details LastModified Time Tobacco Smoking Status Never Smoker NANCY Smith, [facility] 04/28/2015 16:18:51 Do You Have An Advance Directive? No Information not available 10/17/2024 What Is Your Level Of Alcohol Consumption? None Information not available 03/21/2024 Are You Blind Or Do You Have Difficulty Seeing? No Information not available 04/20/2021 Is Blood Transfusion Acceptable In An Emergency? Yes Information not available 04/28/2015 What Is Your Level Of Caffeine Consumption? Moderate Information not available 08/08/2022 How Much Tobacco Do You Chew? None Information not available 04/28/2015 In The 14 Days Before Symptom Onset, Have You Had Close Contact With A Laboratory-confir med COVID-19 While That Case Was Ill? No Information not available 04/20/2021 In The 14 Days Before Symptom Onset, Have You Had Close Contact With A Person Who Is Under Investigation For COVID-19 While That Person Was Ill? No Information not available 04/20/2021 Have You Been To An Area Known To Be High Risk For COVID-19? No Information not available 04/20/2021 Are You Currently Employed? Yes Information not available 04/28/2015 Are You Deaf Or Do You Have Serious Difficulty Hearing? No Information not available 04/20/2021 What Type Of Diet Are You Following? 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 No Information not available 04/20/2021 Live Alone Or With Others? With Others Information not available 04/28/2015 What Was The Date Of Your Most Recent Tobacco Screening? 10/17/2024 Information not available 10/17/2024 How Many Children Do You Have? 2 Information not available 04/28/2015 Performs Monthly Self-breast Exam? Yes Information no t available 04/28/2015 Do You Use Protection During Sex? No Information not available 04/28/2015 What Is Your Relationship Status? Information not available 04/28/2015 Do You Use Your Seat Belt Or Car Seat Routinely? Yes Information not available 04/20/2021 Seat Belts Used Routinely Yes Information not available 04/28/2015 Are You Sexually Active? Yes Information not available 04/28/2015 Do You Have Smoke And Carbon Monoxide Detectors In Your Home? Yes Information not available 04/20/2021 Are You Passively Exposed To Smoke? No Information no t available 04/20/2021 General Stress Level Low Information not available 12/23/2015 Do You Feel Stressed (tense, Restless, Nervous, Or Anxious, Or Unable To Sleep At Night)? [id number] Information not available 04/20/2021 Do You Use Any Illicit Or Recreational Drugs? No Information not available 04/20/2021 Do You Use Sunscreen Routinely? Yes Information not available 04/28/2015 Has Tobacco Cessation Counseling Been Provided? Yes Information not available 08/08/2022 On What Date Was Tobacco Cessation Counseling Provided? 10/17/2024 Information not available 10/17/2024 Sex: Female Functional Status Question Answer Note LastModified by Organizat ion Details LastModified Time Are you able to care for yourself? Yes Information not available 04/20/2021 What is your exercise level? Occasional Information not available 12/23/2015 Mental Status None recorded. Family History Relationship Description Onset Age of this Age Resolved Age Notes LastModified by Organization Details LastModified Time Mother Hypertensive disorder [facility] Not available 2015 15:05:53 Maternal Grandmother Diabetes mellitus [facility] Not available 2015 15:05:53 Medical History Condition Response Other Y High Blood Pressure N Breast Cancer N Depression Y Blood Clots N Lung Disease N Breast Problem N Anesthesia Complications N Headaches/Migraines N Anxiety Disorder Y Muscle, Joint, or Bone Problems N Polyps N Infertility N Acid Reflux (GERD) N Cancer N Endometriosis N High Cholesterol N Liver Disease N Thyroid Problems N Kidney or Bladder Problems N GI Problems N Acne N Eating Disorder N Anemia N Diabetes N Ovarian Cancer N Blood Transfusions N Seizures/Epilepsy N Abuse/Domestic Violence N Asthma N Hepatitis N Heart Disease N Pre-Eclampsia N Osteoporosis N Gynecological History Statement/Question Response Abnormal Pap N Date of LMP 12/31/2023 On BCP's at Conception? N STIs/STDs N HPV Vaccine N Age at Menarche 16 Current Control Method None Age at First Child 22 Sexually Active? Y Menses Monthly N Date of Last Pap Smear 10/25/2023 Sexual Problems? N LMP Definite Obstetrics History GPAL:G 3 P 3 0 0 3 Type Value Full Term 3 Living 3 Total 3 Past Encounters Encounter ID Performer Location Encounter Start Date Encounter Closed Date Diagnosis/Indication Diagnosis SNOMED-CT Code Diagnosis ICD10 Code Diagnosis Note [id number] CHAGO Newton ([employer]) [address] [place] [address] 04/28/2015 15:43:12 04/28/2015 17:28:05 Gynecologic examination 08762120 Normal female exam. Venereal d isease screening 920060046 RTO one week from blood draw for results [id number] Mackenize Tolbert ([employer]) [address] [place] [address] 12/23/2015 16:43:56 01/14/2016 17:27:14 Contraception care management 437076488 Z30.9 Will replace current Mirena with a new one any time before current on expires. Pt. to make appointmen t. Mirena IUD ordered. [id number] Mackenzie Tolbert ([employer]) [address] [place] [address] 02/01/2016 14:45:36 02/01/2016 15:46:42 Replacement of intrauterine contraceptive device 72875778 Z30.433 Benefits, risks, and alternativ es to Mirena IUD replacemen t d/w pt. Pt. expressed understand ing. All pt. questions answered. Consent signed and in chart. Mirena IUD was replaced without difficulty . Please see procedure note for details. Pt. tolerated the procedure well. She was told to have the device removed in 5 years. A reminder card was given. RTO 2 mo. for string check. [id number] [facility] [address] [place] [address] 11/07/2019 13:41:07 11/07/2019 16:30:14 Cervical lymphadenopathy 808130469 R59.0 [id number] [address] [facility] [address] [place] [address] 11/20/2019 16:33:40 11/20/2019 17:18:51 Multinodular goiter 711437353 E04.2 Thyroid nodule 779862002 E04.1 [id number] LUCILA Segovia 14 OB [address] [facility] [place] [place] [address] 01/06/2021 15:45:55 01/08/2021 10:22:40 Routine gynecologic examination done 4954168702 9101 Z01.419 -Educated on the importance of SBE and awareness. -Discussed the importance of cervical cancer screenings -Educated osteoporos is prevention including calcium rich foods, weight bearing exercise. -Discussed the importance of exercise. -Nutrition discussed and the importance of a diet rich in fruits, vegetable, whole grains, and lean proteins. -Counseled regarding prevention of STD's and screening options, condom use and prevention . -Advised avoidance of tobacco, alcohol, and drugs. -Discussed sun safety and the importance of sunscreen. Vaginal discharge 122578 006 N89.8 Educated patient on vulvar hygiene and use condoms during sex. swab obtained and sent to lab. Submandibu lar lymphadenopathy 498917201 R59.0 Pt educated on importance of continuing to follow up with ENT and PCP. Pt verbalized understand ing. Thyroid nodule 979443558 E04.1 Pt reports history of non palpable thyroid nodules and has to get thyroid US every 6 months and follow up with Endocrine. Thyroid exam normal today. pt notified to continue to follow up with endocrine. Pt educated on importance of continuing to follow up. Surveillan ce of intrauterine device contraception done 9130717784 85711 Z30.40 Discussed all options. Pt decided to continue with IUD replacemen t when due. Side-effec t profile of Mirena IUD was reviewed with the patient. Patient was informed of the possibilit y of perforatio n, migration, and expulsion of IUD as well as risk of irregular menstrual bleeding or no bleeding, weight changes, breast tenderness and mood changes. Patient was instructed on how to feel for IUD strings. Pt notified to follow up as scheduled for IUD replacemen t. [id number] LUCILA Segovia 14 OB [address] [facility] [place] [address] 01/27/2021 13:52:14 01/28/2021 12:05:45 Insertion of intrauterine contraceptive device 27466616 Z30.430 Discussed all options. Pt opts for mirena iud replacemen t. Side-effec t profile of Mirena IUD was reviewed with the patient. Patient was informed of the possibilit y of perforatio n, migration, and expulsion of IUD as well as risk of irregular menstrual bleeding or no bleeding, weight changes, breast tenderness and mood changes. Patient was instructed on how to feel for IUD strings. follow up in 4-6 weeks for string check and call office if issues occur. Removal of intrauterine device 39637505 Z30.603 [id number] Hermelindo Alamo PA-C [facility] [address] [place] [address] 04/20/2021 10:36:31 04/20/2021 11:07:06 Acute maxillary sinusitis 79198178 J01.00 [id number] LUCILA Segovia [place] 14 OB 4 [facility] [address] [place] [address] 08/08/2022 10:36:47 08/09/2022 08:36:06 Body mass index 25-29 - overweight 745177990 Z68.25 Pt educated on risks and importance of lifestyle modificati ons. Pt reports will continue to follow up with PCP. Lymphadenopathy 72552047 R59.0 Continue to follow up with Endocrine, ENT dentistry, and PCP. Pt educated on importance of follow up. pt verbalized understand ing Routine gy necologic examination done 7451089156 9101 Z01.419 -Educated on the importance of SBE and awareness. -Discussed the importance of cervical cancer screenings . Pap negative 2020-Educa sharmila osteoporos is prevention including calcium rich foods, weight bearing exercise.- Discussed the importance of exercise.- Nutrition discussed and the importance of a diet rich in fruits, vegetable, whole grains, and lean proteins.- Counseled regarding prevention of STD's and screening options, condom use and prevention .-Advised avoidance of tobacco, alcohol, and drugs.-Dis cussed sun safety and the importance of sunscreen. Surveillan ce of intrauterine device contraception done 8482607584 82099 Z30.40 Discussed all options. Pt decided to continue with IUD. Side-effec t profile of Mirena IUD was reviewed with the patient. Patient was informed of the possibilit y of perforatio n, migration, and expulsion of IUD as well as risk of irregular menstrual bleeding or no bleeding, weight changes, breast tenderness and mood changes. Patient was instructed on how to feel for IUD strings. Pt notified to follow up annually and as needed. [id number] LUCILA Segovia [place] 14 OB 4 [facility] [address] [place] [address] 10/25/2023 09:28:14 10/26/2023 08:26:07 Gynecologic examination 44386299 Z01.419 -Educated on the importance of SBE and awareness. -Discussed the importance of cervical cancer screenings -Educated osteoporos is prevention including calcium rich foods, weight bearing exercise.- Discussed the importance of exercise.- Nutrition discussed and the importance of a diet rich in fruits, vegetable, whole grains, and lean proteins.- Counseled regarding prevention of STD's and screening options, condom use and prevention .-Advised avoidance of tobacco, alcohol, and drugs.-Dis cussed sun safety and the importance of sunscreen. Trying to conceive 54706 9000 Z31.9 patient educated on natural family planning method and educated on preconcept ion care including importance of taking vitamin prior to conceiving . discussed NTD prevention . Pt denies any family history of defects or genetic disorders. Pt declined screenings today. Pt reports up to date on immunizati ons. Pt educated on risks of buspirone and escitalopr am in . Pt states she will discuss with her PCP Dr. Saeed about potentiall y switching medication s. pt educated on risks of advanced maternal age. Track menses and follow up in 6 months and call office if missed menses occurs or positive home test. Lymphadenopathy 01027076 R59.0 Continue to follow up with Endocrine, ENT dentistry, and PCP. Pt notified to tell them she will trying to conceive as well. Pt educated on importance of follow up. pt verbalized understand ing Records requested from most recent office visit notes and imaging. Removal of intrauterine contraceptive device 6345166469 Z30.432 Discussed options. Pt opts with removal. pt advised to use back up method until ready to try to conceive. IUD removed. [id number] LUCILA Segovia 14 OB [address] [facility] [place] [address] 03/21/2024 14:13:06 03/22/2024 07:28:54 Anemia 240271626 D64.9 Routine an tenatal care 478552630 Z34.90 Advanced m aternal age 701424897 O09.511 Lymphadenopathy 27093448 R59.0 Thyroid nodule 993258107 E04.1 [id number] MD Sagar Vanegas 14 OB [address] [facility] [place] [address] 04/30/2024 11:07:16 05/13/2024 15:14:27 Routine care 383383408 Z34.92 Advanced m aternal age 297948700 O09.522 Lymphadenopathy 53887449 R59.9 Thyroid nodule 640511418 E04.1 [id number] MD Sagar Vanegas 14 OB 4 [facility] [place] [address] 05/28/2024 14:27:12 06/10/2024 15:21:43 Routine care 386270216 Z34.92 Advanced m aternal age 221190804 O09.685 [id number] MD Sagar Vanegas 14 OB [address] [facility] [place] [address] 06/27/2024 09:29:28 07/01/2024 14:08:59 Routine care 070267710 Z34.92 Advanced m aternal age 356448735 O09.522 ultr asound scan abnormal 0235398998 9109 O28.3 --obtain level 2 ultrasound at [facility] [id number] LUCILA Segovia 14 OB 4 [facility] [place] [address] 07/17/2024 14:38:43 07/18/2024 09:23:09 Routine care 519806249 Z34.90 see ob episode [id number] MD Sagar Vanegas 14 OB [address] [facility] [place] [address] 08/14/2024 14:10:53 08/17/2024 09:20:19 Routine care 007383791 Z34.92 Anemia of 2734 2003 O99.019 Rubella non-immune 95557 4009 Z01.84 --recommen d vaccine after deliver Vaccine de clined by parent 6913809895 09 Z28.82 --tdap vaccine declined Advanced m aternal age 671999778 O09.522 --co-manag e with MFM [id number] MD Sagar Vanegas 14 OB [address] [facility] [place] [address] 08/28/2024 14:54:30 09/05/2024 13:01:08 Routine care 433377168 Z34.92 Rubella non-immune 36780 4009 Z01.84 --recommen d vaccine after delivery Advanced m aternal age 170028587 O09.522 --co-manag e with M [id number] MD Sagar Vanegas 14 OB [address] [facility] [place] [address] 09/04/2024 16:43:48 09/05/2024 14:53:16 Routine care 805753975 Z34.92 Rubella non-immune 45096 4009 Z01.84 --recommen d vaccine after delivery Advanced m aternal age 194719266 O09.522 --co-manag e with M [id number] MD Sagar Vanegas 14 OB [address] [facility] [place] [address] 09/10/2024 14:57:12 09/12/2024 10:28:51 Routine care 514253718 Z34.92 Rubella non-immune 65947 4009 Z01.84 --recommen d vaccine after delivery Advanced m aternal age 945263104 O09.522 --co-manag e with [facility] [id number] MD Sagar Vanegas 14 OB 4 [facility] [place] [address] 09/16/2024 14:09:47 09/17/2024 08:58:56 Routine care 254165284 Z34.92 Rubella non-immune 32632 4009 Z01.84 --recommen d vaccine after delivery Advanced m aternal age 042744036 O09.522 --co-manag e with [facility] [id number] MD Sagar Vanegas 14 OB [address] [facility] [place] [address] 09/23/2024 13:55:07 09/26/2024 15:22:37 Routine care 312678600 Z34.92 Rubella non-immune 51928 4009 Z01.84 --recommen d vaccine after delivery Advanced m aternal age 257652730 O09.522 --co-manag e with M [id number] Gina Walker [facility] Sagar 14 OB [address] [facility] [place] [address] 10/01/2024 15:13:19 10/02/2024 08:55:11 Routine care 264638892 Z34.83 [id number] MD Sagar Vanegas 14 OB [address] [facility] [place] [address] 10/10/2024 10:57:47 11/05/2024 07:55:09 Postoperative visit 835454130 Z48.89 --Pt healing well Overweight 539246673 E66 .3 [id number] MD Sagar Vanegas 14 OB [address] [facility] [place] [address] 10/17/2024 11:47:40 11/05/2024 09:15:02 Postoperative visit 819094012 Z48.89 --Pt healing well Depression screening 171 699046 Z13.31 Body mass index 20-24 - normal 341885207 Z68.24 Health Concerns Section Related Observation LastModified by Organization Detai ls LastModified Time None Recorded Concern Status LastModified by Organization Details LastModified Time None Recorded Advance Directives Directive N: Payers Encounter Date Sequence Insurance Name Policy Number Policy Kinney Covered Member ID Kinney Member ID Guarantor Name 09/16/2024 1 [employer] [place] 2020 (MEDICAID REPLACEMENT - HMO) Tere Meyers [id number] Tere Meyers 09/23/2024 1 [employer] [place] REPLAC[place] - [place]MO) Tere Meyers [id number] Tere Meyers 10/01/2024 1 [employer] [place]AC[place] - [place]MO) Tere Meyers [id number] Teer Luigi 10/10/2024 1 [employer] [place]AC[place] - [place]MO) Tere Meyers [id number] Tere Meyers 10/17/2024 1 [employer] [place]AC[place] - [place]MO) Tere Meyers [id number] Tere Meyers Notes Date Note Type Note Provider Name and Address Organization Details Recorded Time 09/16/2024 text/html See flow sheet. Shahzad Lane MD Attn: [facility],[address] [place], [address], [facility] 09/16/2024 14:42:30 09/23/2024 text/html See flow sheet. Shahzad Lane MD Attn: [facility],[address] [place], [address], [facility] 09/23/2024 15:51:11 10/10/2024 text/html Post-OpReported bypatient.Onset/ Timing:date of surgery: (10/07/2024) Quality:procedur e: (PLTCS) Associated Symptoms:incisio n healing well; no fatigue; normal appetite; normal bowel function; no constipation; no nausea; no emesis; pain improving; no pain; no fever; no bleeding; no lower extremity edema/pain; no dysuria/urinary symptoms Patient presents for staple removal. She denies any other complaints. Shahzad Lane MD Attn: [facility],[address] [place], [address], [facility] 11/04/2024 19:00:18 10/17/2024 text/html Patient presents as a post-op follow up. She denies pain, drainage or discharge from the area. 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 risk assessment completed and pt needs no resources. Problem Name Start Date End Date Resolution Snomed Code Not e Vaccine declined by parent 08/14/2024 [id number] declined TDAP Rubella non-immune [id number] Lymphadenopathy 98103275 co-m anagement with mfm. pt notified to continue stay up to take on dental care and notify them of Advanced maternal age [id number] co-managment wi th mfm Thyroid nodule 692296137 co-ma nagement Giorgio Calculation Initial Giorgio Date Initial Exam Date Initial Exam Provider Initial Ultrasound Date Last Menstrual Period Date Ultra Sound Weeks Gestation 10/06/2024 03/19/2024 [email or web address] 04/03/2024 12/31/2023 14 Eighteen To Twenty Week Giorgio Update Ultra Sound Date Fundal Height At Umbil Quickening Date Ultra Sound Latest Weeks Gestation Final Giorgio Confirmed By Final Giorgio Confirmed Date Final Giorgio Date Ultra Sound Latest Days Gestation 05/16/20 24 20 10/06/19 25 1 Pre- Flowsheet Flowsheet Date 03/21/2024 Lau Score Blood Edema Fundus Height Fundus Units Glucose Ketones Leukocytes Nitrite Labor Signs Protein Cervic Dilation Cervic Effacement Cervic Station neg none none negative none neg Type Weight in lbs Pre/Post Dialysis Refused With clothes 135.93354386743 BP Diastolic BP Location Tested BP Systolic BP Type 81 122 sitting Fetus Heart Rate Present A 140 Present Fetus Movement Comments Pt is here for new OB appoin tment. pt reports doing well. Pt has history of thyroid nodule's and cervical/submandibular lymphadenopathy for the last few years and reports these issues are being managed by her PCP and dentist. Pt denies any current infection. Pt reports history of anemia in the past but denies being supplement. Labs ordered. Pt opts for [id number] today. Will refer to MFM for comanagement for thyroid nodule with lymphadenopathy and AMA. Pt educated on risks. PT notified to RTC in 4 weeks. OB US ordered. Flowsheet Date 04/30/2024 Lau Score Blood Edema Fundus Height Fundus Units Glucose Ketones Leukocytes Nitrite Labor Signs Protein Cervic Dilation Cervic Effacement Cervic Station neg none none negative none neg Type Weight in lbs Pre/Post Dialysis Refused With clothes 140.761326936720 BP Diastolic BP Location Tested BP Systolic BP Type 71 R arm 109 sitting Fetus Heart Rate Present A 140's Fetus Movement A No Comments Patient denies any complaint s. Flowsheet Date 05/28/2024 Lau Score Blood Edema Fundus Height Fundus Units Glucose Ketones Leukocytes Nitrite Labor Signs Protein Cervic Dilation Cervic Effacement Cervic Station neg none none negative none neg Type Weight in lbs Pre/Post Dialysis Refused With clothes 149.50163102866 BP Diastolic BP Location Tested BP Systolic BP Type 73 R arm 113 sitting Fetus Heart Rate Present A 140's Present Fetus Movement A Yes Comments Patient denies any complaint s. She admits to FM, denies VB, LOF and CTXs. RTC in 4 weeks. Flowsheet Date 06/27/2024 Lau Score Blood Edema Fundus Height Fundus Units Glucose Ketones Leukocytes Nitrite Labor Signs Protein Cervic Dilation Cervic Effacement Cervic Station neg none 26 cm 2+ negative none neg Type Weight in lbs Pre/Post Dialysis Refused With clothes 149.628142195443 BP Diastolic BP Location Tested BP Systolic BP Type 64 R arm 100 sitting Fetus Heart Rate Present A 150's Fetus Movement A Yes Comments Patient denies any complaint s. 1 hour OGTT and CBC obtained today. RTC in 4 weeks. Flowsheet Date 07/17/2024 Lau Score Blood Edema Fundus Height Fundus Units Glucose Ketones Leukocytes Nitrite Labor Signs Protein Cervic Dilation Cervic Effacement Cervic Station neg none 28 cm none negative none neg Type Weight in lbs Pre/Post Dialysis Refused With clothes 153.782542728296 BP Diastolic BP Location Tested BP Systolic BP Type 71 R arm 117 sitting Fetus Heart Rate Present A 155 Present Fetus Movement A Yes Comments Pt is here for OB appointmen t. pt denies any complaints. Pt reports seeing endocrinology on 08/06/24. Pt notified to RTC in 4 weeks. Pt educated on warning signs and notified when to got L and D. Flowsheet Date 08/14/2024 Lau Score Blood Edema Fundus Height Fundus Units Glucose Ketones Leukocytes Nitrite Labor Signs Protein Cervic Dilation Cervic Effacement Cervic Station neg none 31 cm none negative none neg Type Weight in lbs Pre/Post Dialysis Refused With clothes 158.590006300117 BP Diastolic BP Location Tested BP Systolic BP Type 70 R arm 102 sitting Fetus Heart Rate Present A 140's Present Fetus Movement A Yes Comments Patient denies any complaint s. She admits to FM, denies VB, LOF and CTXs. labor precautions given. RTC in 2 weeks. Flowsheet Date 08/28/2024 Lau Score Blood Edema Fundus Height Fundus Units Glucose Ketones Leukocytes Nitrite Labor Signs Protein Cervic Dilation Cervic Effacement Cervic Station neg none 33 cm none moderate none neg Type Weight in lbs Pre/Post Dialysis Refused With clothes 160.710996835056 BP Diastolic BP Location Tested BP Systolic BP Type 74 R arm 110 sitting Fetus Heart Rate Present A 120's Present Fetus Movement A Yes Comments Patient admits to FM, denies VB, LOF and CTXs. labor precautions given. RTC in 1 week, will perform GBS and STI testing. Flowsheet Date 09/04/2024 Lau Score Blood Edema Fundus Height Fundus Units Glucose Ketones Leukocytes Nitrite Labor Signs Protein Cervic Dilation Cervic Effacement Cervic Station neg none 34 cm none negative none neg Type Weight in lbs Pre/Post Dialysis Refused With clothes 160.911160578615 BP Diastolic BP Location Tested BP Systolic BP Type 74 R arm 108 sitting Fetus Heart Rate Present A 140's Present Fetus Movement A Yes Comments Patient admits to FM, denies VB, LOF and CTXs. GBS and STD testing today. labor precautions given. RTC in 1 week. Flowsheet Date 09/10/2024 Lau Score Blood Edema Fundus Height Fundus Units Glucose Ketones Leukocytes Nitrite Labor Signs Protein Cervic Dilation Cervic Effacement Cervic Station neg none 35 cm none negative none trace Type Weight in lbs Pre/Post Dialysis Refused With clothes 163.379953514471 BP Diastolic BP Location Tested BP Systolic BP Type 74 R arm 112 sitting Fetus Heart Rate Present A 140's Present Fetus Movement A Yes Comments Patient denies VB, LOF and C TXs. labor precautions given. RTC in 1 week. Flowsheet Date 09/16/2024 Lau Score Blood Edema Fundus Height Fundus Units Glucose Ketones Leukocytes Nitrite Labor Signs Protein Cervic Dilation Cervic Effacement Cervic Station neg none 35 cm none negative none trace 1cm 50% -3 Type Weight in lbs Pre/Post Dialysis Refused Weight 162.349067616374 BP Diastolic BP Location Tested BP Systolic BP Type 75 R arm 111 sitting Fetus Heart Rate Present A 120's Present Fetus Movement A Yes Comments Patient admits to FM, denies VB, LOF and CTXs. Labor precautions given. RTC in 1 week. Flowsheet Date 09/23/2024 Lau Score Blood Edema Fundus Height Fundus Units Glucose Ketones Leukocytes Nitrite Labor Signs Protein Cervic Dilation Cervic Effacement Cervic Station neg none 37 cm none small none neg 1cm Type Weight in lbs Pre/Post Dialysis Refused With clothes 163.404635690799 BP Diastolic BP Location Tested BP Systolic BP Type 73 R arm 103 sitting Fetus Heart Rate Present A 130's Present Fetus Movement A Yes Comments Patient denies any complaint s. She admits to FM, denies VB, LOF and CTXs. Labor precautions given. RTC in 1 week with Gina, pt will follow up with myself in 2 weeks. Flowsheet Date 10/01/2024 Lau Score Blood Edema Fundus Height Fundus Units Glucose Ketones Leukocytes Nitrite Labor Signs Protein Cervic Dilation Cervic Effacement Cervic Station 38 cm Type Weight in lbs Pre/Post Dialysis Refused Weight 164.523542997547 BP Diastolic BP Location Tested BP Systolic BP Type 77 R arm 110 sitting Fetus Heart Rate Present A 144 Present Fetus Movement A Yes Comments doing well with no complaint s. feeling pos movement, denies regular contractions. labor precautions and kick counts reviewed. rtc in one week, sooner if needed. pt v/u. Flowsheet Date 10/10/2024 Lau Score Blood Edema Fundus Height Fundus Units Glucose Ketones Leukocytes Nitrite Labor Signs Protein Cervic Dilation Cervic Effacement Cervic Station Type Weight in lbs Pre/Post Dialysis Refused Weight 159.870459339565 BP Diastolic BP Location Tested BP Systolic BP Type 80 R arm 133 sitting Fetus Heart Rate Present Fetus Movement Comments Menstrual History Last Menstrual Date Menses Monthly On Bcp Conception Prior Menses Frequency Hcg Plus Date Menarche Onset Age 0412/31/2023 true 14 Genetic Screening And Infection History Question Response Note Patient's Age Will Be 35 Years Or Older At Estim ated Date of Delivery true Thalassemia (Estonian, Albanian, Mediterranean, Or Background): MCV < 80 false Neural Tube Defect (Meningomyelocele, Spina Bifi da, Or Anencephaly) false Congenital Heart Defect false Down Syndrome false Win-Sachs (eg, Hinduism, Cajun, [place]) f alse Amanda Disease false Sickle Cell Disease Or Trait () false Hemophilia Or Other Blood Disorders false Muscular Dystrophy false Cystic Fibrosis false Andry's Chorea false Mental Retardation/Autism false If Yes, Was Person Tested For Fragile X? false Other Inherited Genetic Or Chromosomal Disorder false Maternal Metabolic Disorder (eg, Type 1 Diabetes , PKU) false Patient Or Baby's Father Had A Child With Defects Not Listed Above false Recurrent Loss, Or A Stillbirth false Medications (including Suppl ements, Vitamins, Herbs, OTC Drugs), Illicit/Recreational Drugs, Alcohol true pnv If Yes, Agent(s) And Strength/Dosage false Any Other Genetic History false Live With Someone With TB Or Exposed To TB false Patient Or Partner Has History Of Genital Herpes false Rash Or Viral Illness Since Last Menstrual Perio d false History Of STD, Gonorrhea, Chlamydia, HPV, Syphi lis false Other Infection History false History of HIV false History of Hepatitis false Prior GBS-infected child false Plans and Education First Trimester Discussed Date Discussion Item Discussion Note Discuss ed By 03/21/2024 [facility] Alcohol [facility] 03/21/2024 Intimate partner violence [facility] 03/21/2024 Environmental/work hazards [facility] 03/21/2024 [facility] Nutrition counseling ; special diet; dietary precautions (mercury, listeriosis) [facility] 03/21/2024 Childbirth classes/hospital facilities [facility] 03/21/2024 HIV and other routine tests [facility] 03/21/2024 Risk factors identif ied by history [facility] 03/21/2024 Weight gain counseling [facility] 03/21/2024 Exercise [facility] 03/21/2024 Teratogens [facility] 03/21/2024 Use of any medicatio ns (including supplements, vitamins, herbs, or OTC drugs) [facility] 03/21/2024 [facility] 03/21/2024 Sexual activity [facility] 03/21/2024 Tobacco/smoking cess ation counseling (ask, advise, assess, assist, and arrange) [facility] 03/21/2024 Illicit/recreational drugs [facility] 03/21/2024 Dental care [facility] 03/21/2024 Travel [facility] 03/21/2024 Seat belt use [facility] 03/21/2024 Indications for ultrasonography [facility] 03/21/2024 Avoidance of saunas or hot tubs [facility] 03/21/2024 Toxoplasmosis precautions (cats/raw meat) [facility] Second Trimester Discussed Date Discussion Item Discussion Note Discuss ed By Third Trimester Discussed Date Discussion Item Discussion Note Discuss ed By Delivery Information Delivery Date Delivery Type Labor Anesthesia Weeks Gestation Incision Type Labor Labor Length Hrs Delivered By Post Complications Tubal Sterilization Discharge Date Comments 5 Induce d Regional-Ep idural 40.[address] e false [address] MD None false 10/09/2024 c section for failure to progress Discharge Information Feeding Method Contraceptive Method Maternal HG B and HCT Levels Bottle Ob Episode Information Episode Created Date Number of Fetuses Patient Bloodtype Patient rh Status Prepregnancy Weight lbs Domestic Partner Domestic Partner Phone Father Name [employer]er Designer Status 04/28/20 15 1 CLOSED Fetus Data First Name Last Name Admitted to NICU Weight (g) Sex Living Outcome Pediatric Complications Fetus ID Race Codes Race Delivery Type 3034.53 048 F Full Term [id number] Vaginal Giorgio Calculation Initial Giorgio Date Initial Exam Date Initial Exam Provider Initial Ultrasound Date Last Menstrual Period Date Ultra Sound Weeks Gestation 0 Eighteen To Twenty Week Giogrio Update Ultra Sound Date Fundal Height At Umbil Quickening Date Ultra Sound Latest Weeks Gestation Final Giorgio Confirmed By Final Giorgio Confirmed Date Final Giorgio Date Ultra Sound Latest Days Gestation 0 0 Menstrual History Last Menstrual Date Menses Monthly On Bcp Conception Prior Menses Frequency Hcg Plus Date Menarche Onset Age Delivery Information Delivery Date Delivery Type Labor Anesthesia Weeks Gestation Incision Type Labor Labor Length Hrs Delivered By Post Complications Tubal Sterilization Discharge Date Comments 1 None 39 false Discharge Information Feeding Method Contraceptive Method Maternal HG B and HCT Levels Ob Episode Information Episode Created Date Number of Fetuses Patient Bloodtype Patient rh Status Prepregnancy Weight lbs Domestic Partner Domestic Partner Phone Father Name [employer] Marker Designer Status 04/28/20 15 1 CLOSED Fetus Data First Name Last Name Admitted to NICU Weight (g) Sex Living Outcome Pediatric Complications Fetus ID Race Codes Race Delivery Type 3202.35 [id number] F Full Term [id number] Vaginal Giorgio Calculation Initial Giorgio Date Initial Exam Date Initial Exam Provider Initial Ultrasound Date Last Menstrual Period Date Ultra Sound Weeks Gestation 0 Eighteen To Twenty Week Giorgio Update Ultra Sound Date Fundal Height At Umbil Quickening Date Ultra Sound Latest Weeks Gestation Final Giorgio Confirmed By Final Giorgio Confirmed Date Final Giorgio Date Ultra Sound Latest Days Gestation 0 0 Menstrual History Last Menstrual Date Menses Monthly On Bcp Conception Prior Menses Frequency Hcg Plus Date Menarche Onset Age Delivery Information Delivery Date Delivery Type Labor Anesthesia Weeks Gestation Incision Type Labor Labor Length Hrs Delivered By Post Complications Tubal Sterilization Discharge Date Comments 8 None 40 induced Discharge Information Feeding Method Contraceptive Method Maternal HG B and HCT Levels
--- OUTSIDE RECORDS SUMMARY | 2024-11-11 17:10 | XMS_ITS | Clinical Summary ---
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 cephalic, time of last check: 8:45am FHT: External Monitor - Baseline: 125 bpm, Variability: Moderate (Between 6 and 25 BPM), Accelerations: Acceleration 15x15, Decelerations: none Anchor Point: external., 4-5 contractions per 10 minutes. A/P: Tere Meyers is a 39 y.o. at 40w1d admitted for labor. - GBS negative. - Induction of Labor: not required - Labor Augmentation: not required - SVE: /-1 - FHT: Category I reassuring. - TOCO: regular contractions - Pain Control: Epidural - Patient is progressing adequately. Plan to continue expectant management - AROM with clear fluids at 8:45am Plan discussed with Dr. Domingo Jeter DO Family Medicine PGY-1 [facility] Family Medicine Residency Cosigned by Shahzad Lane MD at 10/07/2024 10:52 AM EXTRACTOR OPERATOR ACTOR OPERATOR ACTOR OPERATOR Associated attestation - Shahzad Lane MD - 10/07/2024 10:52 AM EXTRACTOR OPERATOR I have seen and examined the patient on 10/07/24. I agree with the findings and plan of care as documented in the resident's/fellow's note.. Progress Notes - Hospital En counter - 07/11/2024 - GA:27w4d 07/11/2024 - 27w4d - Melvin Go MD NONSTRESS TEST NOTE Dictation date and nonstress test note date are both 07/11/2024. The patient is a 38-year-old female patient of Dr. Lane's who is 3, para 2 with an EDC of 10/06/2024 (27 and 4/7 weeks) who presents to Labor and Delivery for nonstress testing because of decreased movement. Electronic monitoring is applied showing baseline heart tones of 125 beats per minute range, moderate variability and accelerations to 155 beats per minute range associated with patient perceived movement -- a reactive nonstress test. No contractions are noted. IMPRESSION A 27 and 4/7 week intrauterine with reactive nonstress test done for decreased movement. PLAN The patient will follow movement. labor symptoms are reviewed. She will present back should they occur and she will otherwise follow up as scheduled in the office with Dr. Lane. Job ID/Internal Job ID: [id number] Progress Notes - Initial Pre delaney - 04/23/2024 - GA:16w2d 04/23/2024 - 16w2d - Nancy Layne MD Initial HROB Visit Date of Visit: 04/23/2024 10:15 AM Author: Nancy Layne MD Referring Provider: Bev Saeed NP Tere Meyers is a 38 y.o. at 17w0d by 2T (14w1d) who desires establishment of care for her . Her is currently complicated by: #Right thyroid nodule: Noted several years ago, recently increased in size to 2.1cm on right in August. Has never had abnormal thyroid testing. No family history of thyroid cancer. #Depression/anxiety: Weaned herself off medication prior to conceiving. Reports mood stable, well-supported. #AMA: S/p low-risk NIPT this . Patient Active Problem List Diagnosis Non-toxic multinodular goiter Lymphadenopathy Chronic tonsillitis Dental caries JEREMIAH (generalized anxiety disorder) 11 weeks gestation of HROB: Thyroid nodule HROB: Encounter for supervision of normal in second trimester HROB: AMA Morning sickness? A little nauseous, worse in first trimester movement? a little Leakage of fluid? no Vaginal bleeding? no Contractions? no FOB name: Tate Planned ? yes Desired ? yes Taking ? yes Taking other meds not yet cleared by OB? no Cats in household? no Job with chemical exposure? no Xrays in ? no Dating: Working Criteria: 1T US Date: 04/03/24, Gest Age 14w1d => ORTEGA 10/01/2024 Obstetric History: OB History Para Term AB Living 3 2 2 2 SAB IAB Ectopic Multiple Live Births 2 # Outcome Date GA Lbr Luis Eduardo/2nd Weight Sex Type Anes PTL Lv 3 Current 2 Term 2010 39w0d F Vag-Spont BARRY 1 Term 2007 40w0d F Vag-Spont BARRY Genetic History: [-] Mother's Age > 34 years [-] Sickle Cell Disease or Trait () [-] Thalasemia (Croatian, Romansh, Medit or ; MCV <80) [-] Win Sachs Disease (Orthodox, Cajun, Grenadian Fijian) [-] Down's Syndrome [-] Neural Tube Defects (Meningomyelocele, Spina Bifida or Anencephaly) [-] Other Developmental Delay [-] Cystic Fibrosis [-] [place]'s Chorea [-] Muscular Dystrophy [-] Hemophilia [-] Other Heritable condition Medical History: No past medical history on file. @MEDUN@ No Known Allergies Surgical History: No past surgical history on file. Family History: Family History Family history unknown: Yes Social History: Social History Social History Narrative Not on file Physical Exam: Vitals: BP 94/50 Pulse 80 Wt 138 lb 8 oz (62.8 kg) SpO2 100% BMI 23.77 kg/m General: Well appearing, pleasant female in NAD HEENT: Normocephalic, normal extraocular movements Neck: large, firm nodule on lateral aspect of neck bilaterally Heart: Regular rate and rhythm, no murmurs/gallops/rubs apprecaited Lungs: Clear to auscultation bilaterally, no wheeze or crackles Breasts: Deferred Abdomen: Soft, non-tender, non-distended, gravid Extremities: Warm and well perfused, non-tender, no lower extremity edema Pelvic: deferred Labs: Lab Results Component Value Date HEPBSAG Nonreactive 03/15/2024 US history: (04/23/24) SIUP at 17w1d, EFW 185g (73%tile), ROSA normal, posterior placenta Assessment and Plan: Tere Meyers is a 38 y.o. at 17w0d by with complicated by: Problem List Endocrine and Metabolic HROB: Thyroid nodule Overview - 1.6cm right thyroid nodule noted on US on 12/05/2022. - Reimaged on 09/07/2023, increased in size to 2.1cm, TI-RADS 3. - Per TI-RADS guidelines, recommend reimaging at 1 year, 3 years, and 5 years. - Patient reports no history of abnormal thyroid function testing, last TSH 0.96/T4 1.19 in March 2024. Plan: - M does not work up thyroid nodules but is happy to assist with questions regarding work up and management going forward. - Defer to primary care provider or track patrol for further work up and management. - Next US scheduled in August 2024. Gravid and HROB: Encounter for supervision of normal in second trimester - Primary Overview 1st Trimester: [x] Dating Criteria: 2T (14w1d) [x] Labs: Rh pos, Ab neg, CBC 10.8/32.6, Rubella non-immune, VZV immune, HIV NR, RPR NR, HepBSAg NR, Hep C Ab NR [x] GC/CT/Trich: neg/neg/neg [x] UCx: no growth [x] vitamins [x] Genetic Screening: low risk NIPT [] CF/SMA carrier screening: declined [x] Hgb electrophoresis: wnl [x] Pap: NILM/HPV- 10/25/2023 [] EPDS: PNBHS referral (if indicated) [x] ASA at 12 weeks (if indicated) recommended given advanced maternal age [] Feeding Preferences: benefits of discussed with patient at RN IOB 2nd Trimester: [] Anatomy ultrasound: [] CBC: [] 1hr GTT (24-28wks): [] Flu Shot (Sep-Dec): [] Tdap (27-36wks): [] Rhogam (if Rh neg): [] Childbirth classes discussed [] education (colostrum, expected breast changes, plan for RTW) and breast pump ordered [] Second trimester education packet 3rd Trimester: [] CBC/HIV/RPR/T&S: [] GBS: [] GC/CT/Trich (if indicated): [] RSV vaccine [] Final discussion (S2S, Baby Friendly, LC Support, PP experience) [] Third trimester education packet Last visit: [] Last clinic visit SVE: [] IOL start agent: [] Epidural: [] Consents signed: Counseling: [] Method of delivery: [] Bottle of CHG 4% and hand out provided @ 36wks (if planned) [] Timing of delivery: [] MOC: [] MOF: [] COVID-19 vaccine counseling [] education: completed in all 3 trimesters [] Electrical Manager: [] Car seat discussed [] PP depression counseling HROB: AMA Overview Briefly, we reviewed the risks of AMA, including increased risk of genetic aneuploidy, miscarriage, preeclampsia, gestational diabetes, delivery, and delivery. We discussed genetic screening/testing options. Patient has already undergone NIPT and declines further diagnostic testing. Recommend 81mg ASA qday for prevention of pre-eclampsia given advanced maternal age. This was discussed with the patient and she is amenable. Next US: anatomy US per primary OBGYN monitoring: N/A RTC in 4 weeks to see primary OBGYN The patient was seen and discussed with Dr. Rubin and Dr. Roach. Gayle Layne MD, MPH Obstetrics & Gynecology, PGY-4 04/23/24 Cosigned by Hadley Roach MD at 04/25/2024 6:53 AM CDT Associated attestation - Hadley Roach MD - 04/25/2024 6:53 AM CDT I have seen and examined the patient. I agree with the findings and plan of care as documented in the resident/fellow's note. My total encounter time on 04/23/2024 was 40 minutes which was spent in the activities documented in the note. This includes time spent prior to the visit and after the visit in direct care of the patient. This time does not include time spent in any separately reportable services. Workup of thyroid nodule per primary physician and/or endocrinology. Recent thyroid studies normal. Last Filed Vital Signs Vital Sign Reading Time Taken Comments Blood Pressure 98/60 10/09/2024 8:40 AM EXTRACTOR OPERATOR Pulse 78 10/09/2024 8:40 AM EXTRACTOR OPERATOR Temperature 36.8 C (98.2 F) 10/09/2024 8:40 AM EXTRACTOR OPERATOR Respiratory Rate 16 10/09/2024 8:40 AM EXTRACTOR OPERATOR Oxygen Saturation 97% 10/07/2024 10:59 PM EXTRACTOR OPERATOR Inhaled Oxygen Concentration - - Weight 74.4 kg (164 lb) 10/04/2024 10:40 AM EXTRACTOR OPERATOR Height 162.6 cm (5' 4 ) 10/04/2024 10:40 AM EXTRACTOR OPERATOR Body Mass Index 28.15 10/04/2024 10:40 AM EXTRACTOR OPERATOR Plan of Treatment Health Maintenance Due Date Last Done Comments Cervical Cancer Screening 1987 DTaP/Tdap/Td Vaccine (1 - Tdap) 1998 Varicella Vaccines (1 of 2 - 13+ 2-dose series) 2000 Covid-19 Vaccine (3 - season) 2024 10/11/2021, 09/20/2021 Influenza Vaccine (#1) 2024 Regular Well Visit/Exam 18-64 03/22/2025 03/22/2024 Depression Screening 10/09/2025 10/09/2024, 10/08/2024, 10/06/2024, Additional history exists Hepatitis C Screening Completed 03/15/2024 Hepatitis B Screening Completed 03/21/2024 HPV Vaccines Aged Out No longer eligi ble based on patient's age to complete this topic Pneumococcal vaccine <65 Aged Out No longer eligible based on patient's age to complete this topic Procedures Procedure Name Priority Date/Time Associated Diagnosis Comments CBC WITHOUT DIFFERENTIAL Routine 10/08/2024 8:18 AM EXTRACTOR OPERATOR BLOOD GAS, CORD VENOUS STAT 11:32 AM EXTRACTOR OPERATOR BLOOD GAS, CORD ARTERIAL STAT 10/07/2024 11:32 AM EXTRACTOR OPERATOR SECTION 10/07/2024 10:5 9 AM EXTRACTOR OPERATOR Failure to progress in second stage of labor ANESTHESIA EPIDURAL BLOCK Routine 10/07/2024 5:49 AM EXTRACTOR OPERATOR DIFFERENTIAL AUTO STAT 10/07/2024 4:3 0 AM EXTRACTOR OPERATOR ANTIBODY SCREEN STAT 10/07/2024 4:30 AM EXTRACTOR OPERATOR ABO/RH STAT 10/07/2024 4:30 AM EXTRACTOR OPERATOR CBC WITH AUTO DIFFERENTIAL STAT 10/07/2024 4:30 AM EXTRACTOR OPERATOR TYPE AND SCREEN STAT 10/07/2024 4:30 AM EXTRACTOR OPERATOR RPR Routine 10/07/2024 4:30 AM EXTRACTOR OPERATOR URINALYSIS, MICROSCOPIC ONLY Routine 10/06/2024 10:43 AM EXTRACTOR OPERATOR URINALYSIS AND REFLEX TO MICROSCOPIC AND CULTURE Routine 10/06/2024 10:43 AM EXTRACTOR OPERATOR INFLUENZA A/B, RSV, AND COVID-19 PCR Routine 10/04/2024 11:19 AM EXTRACTOR OPERATOR STREPTOCOCCUS GROUP A PCR STAT 10/04/2024 11:19 AM EXTRACTOR OPERATOR RPR Routine 09/04/2024 GROUP B STREPTOCOCCUS CULTURE Routine 09/04/2024 HIV 1/2 ANTIBODY PLUS P24 ANTIGEN Routine 09/04/2024 HEPATITIS C ANTIBODY Routine 03/15/2024 11:35 AM CDT Encounter for hepatitis C screening test for low risk patient from Last 3 Months or Most Recently Relevant to Health Maintenance Results * (ABNORMAL) CBC without differential (10/08/2024 8:18 AM EXTRACTOR OPERATOR) WBC 15.9(H) 3.8 - 9.9 K/cumm Hgb 8.5(L) 11.9 - 15.5 g/dL [facility] ([place]) Hct 25.5(L) 35.6 - 45.5 % [facility] ([place]) Plt 144(L) 150 - 400 K/cumm [facility] ([place]) MPV 11.7 9.1 - 12.3 fL [facility] ([place]) RBC 2.66(L) 3.90 - 5.20 M/cumm [facility] ([place]) MCV 95.9 81.3 - 96.4 fL [facility] ([place]) MCH 32.0 27.1 - 33.3 pg [facility] ([place]) MCHC 33.3 32.3 - 35.7 g/dL [facility] ([place]) RDW CV 14.1 11.1 - 14.9 % [facility] ([place]) RDW SD 48.1 35.7 - 48.1 fL [facility] ([place]) NRBC abs 0.00 0.00 - 0.01 K/cumm [facility] ([place]) Blood 10/08/2024 8:18 AM EXTRACTOR OPERATOR 10/08/2024 8:21 AM EXTRACTOR OPERATOR Shahzad Lane MD LAB BLOOD ORDERABLES F inal Result Performing Organization Address [facility] de Phone Number [facility] ([place]) 1 [facility] [place] [place] [address] * Blood Gas, Cord Venous (10/07/2024 11:32 AM EXTRACTOR OPERATOR) pH Cord Charles 7.37 pCO2 Cord Charles 35 mmHg [facility] ([place]) pO2 Cord Charles 29 mmHg [facility] ([place]) Base Excess Cord Charles -4 mmol/L [facility] ([place]) HCO3 Cord Charles (Calc) 20 mmol/L [facility] ([place]) O2 Sat Cord Charles (Bandar) 62 % [facility] ([place]) Comment: Interpretive Data No Reference Ranges Established Current Interpretive Data was last revised on 2018 Cord blood 10/07/2024 11:3 2 AM EXTRACTOR OPERATOR 10/07/2024 11:41 AM EXTRACTOR OPERATOR Shahzad Lane MD LAB BLOOD ORDERABLES F inal Result Performing Organization Address [facility] Co de Phone Number [facility] ([place]) 1 [facility] [place] [address] * Blood Gas, Cord Arterial (10/07/2024 11:32 AM EXTRACTOR OPERATOR) pH Cord Art 7.33 pCO2 Cord Art 47 mmHg [facility] ([place]) pO2 Cord Art 15 mmHg [facility] ([place]) Base Excess Cord Art -2 mmol/L [facility] ([place]) HCO3 Cord Art (Calc) 24 mmol/L [facility] ([place]) O2 Sat Cord Art (Bandar) 18 % [facility] ([place]) Comment: Interpretive Data No Reference Ranges Established Current Interpretive Data was last revised on 2018 Cord blood 10/07/2024 11:3 2 AM EXTRACTOR OPERATOR 10/07/2024 11:41 AM EXTRACTOR OPERATOR us Shahzad Lane MD LAB BLOOD ORDERABLES F inal Result [facility] ([place]) 1 [facility] [place] [address] * Epidural Block (10/07/2024 5:49 AM EXTRACTOR OPERATOR) Narrative Jairo [place] CRNA - 10/07/2024 5:49 AM EXTRACTOR OPERATOR Jairo [place] CRNA 10/07/2024 5:49 AM Epidural Block Patient location: L&D Reason for block: labor analgesia Staff: Placed by: RADIO TELEVISION TECHNICAL DIRECTOR: Jairo [place] CRNA Procedure prep: Preprocedure checklist: patient identified, procedure contraindications assessed, procedure consent obtained, surgical consent, IV checked, risks, benefits and alternatives discussed, monitors and equipment checked and timeout performed Patient Position: sitting Procedure performed while patient: awake Monitoring: oximetry and blood pressure Prep solution: chlorhexadine/alcohol PPE: provider hat/mask, sterile gloves and sterile drape Skin infiltrated with lidocaine 1%: yes Epidural: Approach: midline Imaging guidance used: no Location: L3-4 Number of attempts:1 Epidural needle: Injection technique: BREANNE saline and BREANNE air Needle type: Tuohy Needle gauge: 18 G Needle length: 9 cm Loss of resistance: 6 cm Catheter: Catheter type: multi-orifice. Catheter at skin depth: 11 cm Negative aspiration of blood: no Negative aspiration of CSF: no Test dose: negative Assessment: Sensory level - left: full eval pending Sensory level - right: full eval pending Events: patient tolerated procedure well with no complications Additional comments: DPE w/ 25g Rafael. Scoliosis noted. us Checo Layne MD ANESTHESIA ORDERABLES Final Result * (ABNORMAL) Differential, auto (10/07/2024 4:30 AM EXTRACTOR OPERATOR) Neutrophil abs 8.6(H) 1.5 - 6.5 K/cumm Imm gran abs 0.1 0.0 - 0.1 K/cumm [facility] ([place]) Lymphocyte abs 2.6 0.8 - 3.3 K/cumm [facility] ([place]) Monocyte abs 0.8 0.2 - 0.8 K/cumm [facility] ([place]) Eosinophil abs 0.1 0.0 - 0.5 K/cumm [facility] ([place]) Basophil abs 0.1 0.0 - 0.1 K/cumm [facility] ([place]) Neutrophil pct 70.7 % [facility] ([place]) Comment: Interpretive Data Percent cell count reference ranges are not reported, since discordance with absolute values may lead to misinterpretation of CBC data. Current Interpretive Data was last revised on 2018. Imm gran pct 0.7 % [facility] ([place]) Comment: Interpretive Data Percent cell count reference ranges are not reported, since discordance with absolute values may lead to misinterpretation of CBC data. Current Interpretive Data was last revised on 2018. Lymphocyte pct 20.9 % [facility] ([place]) Comment: Interpretive Data Percent cell count reference ranges are not reported, since discordance with absolute values may lead to misinterpretation of CBC data. Current Interpretive Data was last revised on 2018. Monocyte pct 6.4 % [facility] ([place]) Comment: Interpretive Data Percent cell count reference ranges are not reported, since discordance with absolute values may lead to misinterpretation of CBC data. Current Interpretive Data was last revised on 2018. Eosinophil pct 0.9 % [facility] ([place]) Comment: Interpretive Data Percent cell count reference ranges are not reported, since discordance with absolute values may lead to misinterpretation of CBC data. Current Interpretive Data was last revised on 2018. Basophil pct 0.4 % [facility] ([place]) Comment: Interpretive Data Percent cell count reference ranges are not reported, since discordance with absolute values may lead to misinterpretation of CBC data. Current Interpretive Data was last revised on 2018. Blood 10/07/2024 4:30 AM EXTRACTOR OPERATOR 10/07/2024 4:38 AM EXTRACTOR OPERATOR Checo Layne MD LAB BLOOD ORDERABLES F inal Result [facility] ([place]) 1 [facility] [employer] [place] [place] [address] * (ABNORMAL) CBC with auto differential (10/07/2024 4:30 AM EXTRACTOR OPERATOR) WBC 12.2(H) 3.8 - 9.9 K/cumm Hgb 10.5(L) 11.9 - 15.5 g/dL [facility] ([place]) Hct 30.4(L) 35.6 - 45.5 % [facility] ([place]) Plt 170 150 - 400 K/cumm [facility] ([place]) MPV 11.9 9.1 - 12.3 fL [facility] ([place]) RBC 3.33(L) 3.90 - 5.20 M/cumm [facility] ([place]) MCV 91.3 81.3 - 96.4 fL [facility] ([place]) MCH 31.5 27.1 - 33.3 pg [facility] ([place]) MCHC 34.5 32.3 - 35.7 g/dL [facility] ([place]) RDW CV 13.4 11.1 - 14.9 % [facility] ([place]) RDW SD 43.0 35.7 - 48.1 fL [facility] ([place]) NRBC abs 0.00 0.00 - 0.01 K/cumm [facility] ([place]) Blood 10/07/2024 4:30 AM EXTRACTOR OPERATOR 10/07/2024 4:38 AM EXTRACTOR OPERATOR Checo Layne MD LAB BLOOD ORDERABLES F inal Result [facility] ([place]) 1 [facility] [employer] [place] [place] [address] * ABO/Rh (10/07/2024 4:30 AM EXTRACTOR OPERATOR) ABO/Rh A Positive Blood 10/07/2024 4:30 AM EXTRACTOR OPERATOR 10/07/2024 4:38 AM EXTRACTOR OPERATOR Narrative [facility] ([place]) - 10/07/2024 5:00 AM EXTRACTOR OPERATOR Has the patient had Daratumumab or Isatuximab in the past 6 months?->Unknown Checo Layne MD LAB BLOOD BANK TEST OR DERABLES Final Result Performing Organization Address [facility]/ZIP Co de Phone Number [facility] ([place]) 1 [facility] [place] [place] [address] * RPR Blood (10/07/2024 4:30 AM EXTRACTOR OPERATOR) RPR Nonreactive Nonreactive Comment:Testing performed by : [facility], [address] [place] [address], [id number] Blood 10/07/2024 4:30 AM EXTRACTOR OPERATOR 10/07/2024 10:04 AM EXTRACTOR OPERATOR Checo Layne MD LAB MICROBIOLOGY - GEN ERAL ORDERABLES Final Result Performing Organization Address [facility] de Phone Number [facility] ([place]) 1 [place] [address] * Antibody screen (10/07/2024 4:30 AM EXTRACTOR OPERATOR) Alon, indirect, Gel Interpretation Negative ABSC Blood 10/07/2024 4:30 AM EXTRACTOR OPERATOR 10/07/2024 4:38 AM EXTRACTOR OPERATOR Narrative [facility] ([place]) - 10/07/2024 5:15 AM EXTRACTOR OPERATOR Has the patient had Daratumumab or Isatuximab in the past 6 months?->Unknown Chceo Layne MD LAB BLOOD BANK TEST OR DERABLES Final Result Performing Organization Address [facility] Co de Phone Number [facility] ([place]) 1 [facility] [place] [address] * (ABNORMAL) Urinalysis reflex to microscopic and culture Urine, clean voided (10/06/2024 10:43 AM EXTRACTOR OPERATOR) Color, ur Yellow Yellow Clarity, ur Turbid(A) Clear [facility] ([place]) Specific gravity, ur 1.023 1.003 - 1.030 [facility] ([place]) pH, urine 8.0 [facility] ([place]) Comment: Interpretive Data U rine pH is affected by diet, medications, systemic acid-base disturbances, and renal tubular function. pH may affect urinary stone formation. For example, urine pH below 6.0 may help reduce the tendency for calcium phosphate stones and pH greater than 6.0 may reduce the tendency for uric acid stone formation. Source: [facility] [employer] Current Interpretive Data was last revised on 2017 Protein, ur ql 1+(A) Negative [facility] ([place]) Glucose, ur ql Negative Negative [facility] ([place]) Ketones, ur 1+(A) Negative [facility] ([place]) Bilirubin, ur Negative Negative [facility] ([place]) Blood, ur Negative Negative [facility] ([place]) Urobilinogen, ur <2.0 <2.0 mg/dL [facility] ([place]) Nitrite, ur Negative Negative [facility] ([place]) Leukocyte esterase, ur 2+(A) Negative [facility] ([place]) UA reflex comment Reflex to microscopic UA will be performed. [facility] ([place]) Urine, clean voided 10/06/2024 10:43 AM EXTRACTOR OPERATOR 10/06/2024 10:47 AM EXTRACTOR OPERATOR us Shahzad Lane MD LAB MICROBIOLOGY - GEN ERAL ORDERABLES Final Result [facility] ([place]) 1 [facility] Department [place] [address] * (ABNORMAL) Urinalysis, microscopic only (10/06/2024 10:43 AM EXTRACTOR OPERATOR) WBC, ur 6-10(A) 0 - 5 /HPF RBC, ur 0-2 0 - 2 /HPF [facility] ([place]) Epithelial cells, squamous, ur 1-5 0 - 5 /HPF [facility] ([place]) Bacteria, ur 1+(A) [facility] ([place] Mucous, ur Present(A) [facility] ([place]) Sperm, ur Present(A) [facility] ([place]) Hyaline casts, ur 1-5 0 - 10 /LPF [facility] ([place]) Culture Reflex Comment Reflex conditions for urine culture (WBC >10) not met. [facility] ([place]) Urine, clean voided 10/06/2024 10:43 AM EXTRACTOR OPERATOR 10/06/2024 10:47 AM EXTRACTOR OPERATOR us Shahzad Lane MD LAB URINE ORDERABLES F inal Result [facility] ([place] 1 [facility] Department [place] [address] * Influenza A/B, RSV, and COVID-19 PCR Nasopharyngeal (10/04/2024 11:19 AM EXTRACTOR OPERATOR) COVID-19 RNA Negative Negative Influenza A RNA Negative Negative [facility] ([place]) Influenza B RNA Negative Negative [facility] ([place]) RSV RNA Negative Negative [facility] ([place]) Comment: Interpretive data: Testing performed by [facility]. This test is performed using the [employer] Xpert Xpress CoV-2/Flu/RSV plus assay. This is a multiplex, real- time reverse transcriptase PCR assay intended for the qualitative detection of nucleic acid from SARS-CoV-2, influenza A, influenza B, and respiratory syncytial virus. This assay has been cleared by the [place] Food and Drug administration. The performance characteristics have been verified by the [facility]. Results must be considered in the clinical context, and a negative result does not rule out infection. Interpretive Data last revised 2023 Nasopharyngeal 10/04/2024 11 :19 AM EXTRACTOR OPERATOR 10/04/2024 11:21 AM EXTRACTOR OPERATOR Narrative [facility] ([place]) - 10/04/2024 12:00 PM EXTRACTOR OPERATOR Is the Patient experiencing symptoms consistent with COVID?->Yes us Debbie CARTER LAB MICROBIOLOGY - GENERA L ORDERABLES Final Result [facility] [place]) 1 [place] [address] * Streptococcus Group A PCR Throat (10/04/2024 11:19 AM EXTRACTOR OPERATOR) Pathologist [facility] Strep A DNA Not Detected Not Detected Comment: This test is performed using the [employer] Xpert Group A Streptococcal Assay. This is a qualitative, real-time PCR assay that detects Group A Strep using throat specimens from patients suspected of having streptococcal pharyngitis. This assay does not detect other beta-hemolytic streptococci including Group C or Group G. Group C and G have been associated with pharyngitis and, occasionally, acute nephritis but do not cause rheumatic fever. If suspected, order Throat Culture, Routine. This assay has been cleared by the US Food and Drug Administration, and its performance characteristics have been verified by the performing laboratory. Throat 10/04/2024 11:1 9 AM EXTRACTOR OPERATOR 10/04/2024 11:21 AM EXTRACTOR OPERATOR Debbie CARTER LAB MICROBIOLOGY - GENERA L ORDERABLES Final Result Performing Organization Address City/[facility] Co de Phone Number [facility] [place]) 1 [facility] [place] [address] * HIV 1/2 Antibody plus p24 Antigen Blood (09/04/2024) [facility] SCRIBED HIV P24 Nonreactive Nonreactive , Invalid Blood Shahzad Lane MD LAB MICROBIOLOGY - GEN ERAL ORDERABLES Final Result * Group B streptococcal culture (09/04/2024) [facility] SCRIBED Group B Strep Negative Negative Shahzad Lane MD LAB MICROBIOLOGY - GEN ERAL ORDERABLES Final Result * RPR Blood (09/04/2024) [facility] SCRIBED RPR Non-Reacti ve Non-Reacti ve Blood us Shahzad Lane MD LAB MICROBIOLOGY - GEN ERAL ORDERABLES Final Result * Hepatitis C antibody Blood (03/15/2024 11:35 AM CDT) Hep C Ab Nonreactive Nonreactive Comment: Interpretive Data Nonreactive: Antibodies to HCV not detected. Does NOT exclude the possibility of recent exposure to HCV. Equivocal: Equivocal for HCV antibodies. Supplemental molecular testing will be automatically performed to determine infection status in accordance with current CDC screening recommendations. Reactive: Positive for HCV antibodies. This may represent current or past HCV infection. Supplemental molecular testing will be automatically performed to determine current infection status in accordance with current CDC screening recommendations. Interpretive data was last revised on 2019. Testing performed by: [facility], [address] [place] [address]., [id number] Blood 03/15/2024 11:3 5 AM CDT 03/15/2024 6:52 PM CDT us Bev Saeed NP LAB MICROBIOLOGY - GENERAL ORDER [place] Final Result [facility] [place]) 1 [facility] Department [place] [address] from Last 3 Months or Most Recently Relevant to Health Maintenance Insurance [employer] [facility] [employer] [facility] Advance Directives For more information, please contact: [phone] * Full Code (Latest Code Status on File) Date Activated Date Inactivated Comments 10/07/2024 3:59 PM 10/09/2024 6:27 PM * Full Code Date Activated Date Inactivated Comments 10/07/2024 4:09 AM 10/07/2024 3:59 PM Full CPR in case of cardiopulmonary arrest Care Teams Hyperion Analyst Relationship Specialty Start Date End Date Bev Saeed NP PCP - General Family Medicine 08/15/[address] MD [address] [place] [address] DR [facility] B [facility] [address] [place] [address] [employer] Teacher'S Aide Obstetrics and Gynecology 10/09/24
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
== END 2024-11-11 15:15 | disposition home or self-care (01) ==
PROVIDERS: Emergency Provider Registered Nurse; PCP Nurse Practitioner
DX: H10.32 Unspecified acute conjunctivitis, left eye (principal); H00.015 Hordeolum externum left lower eyelid
CPT/HCPCS: 99213; G0463